=== PATIENT | male | born 1960 | race Caucasian/White ===

== ENCOUNTER 2021-03-02 14:23 | Inpatient (IN) | payer BC ==
[~2021-03-02] VITALS: Ht 182.9 cm; Wt 65.5 kg
[2021-03-02] MEDS ORDERED: HYDROcodone/APAP 5/325MG 1 TAB TABLET PO PRN (15:00)
[2021-03-02] MEDS ORDERED: SIMETHICONE 80 MG TAB.CHEW PO PRN (15:00)
[2021-03-02] MEDS ORDERED: BENZOCAINE/MENTHOL LOZENGE. PO PRN (15:00)
[2021-03-02 15:43] VITALS: BP 147/80
[2021-03-02 16:07] LABS: BASO % 0 % (0-3); EOS # 0.2 x10^3/uL (0.0-0.7); EOS % 1 % (0-3); HEMATOCRIT 30.5 % (39.0-53.0); HEMOGLOBIN 9.5 g/dL (13.0-17.5); LYMPH # 0.5 x10^3/uL (1.0-4.8); LYMPH % 5 % (24-48); MEAN CORPUSCULAR HEMOGLOBIN 27 pg (25-35); MEAN CORPUSCULAR HGB CONC 31 g/dL (31-37); MEAN CORPUSCULAR VOLUME 87 fL (79-100); MONO # 1.1 x10^3/uL (0.0-1.1); MONO % 10 % (0-9); NEUT % 83 % (31-73); PLATELET COUNT 142 x10^3/uL (140-400); RED BLOOD COUNT 3.53 x10^6/uL (4.30-5.70); RED CELL DISTRIBUTION WIDTH 20.3 % (11.5-14.5); WHITE BLOOD COUNT 10.8 x10^3/uL (4.0-11.0)
[2021-03-02 16:32] LABS: CALCIUM 7.9 mg/dL (8.5-10.1); CREATININE 3.7 mg/dL (0.7-1.3); GFR 16.9; POTASSIUM 3.4 mmol/L (3.5-5.1)
[2021-03-02 16:55] LABS: ANISOCYTOSIS MOD; HYPOCHROMIA MOD; PLT ESTIMATE ADEQUATE (ADEQUATE)
[2021-03-02 16:56] LABS: OVALOCYTES FEW
[2021-03-02] MEDS ORDERED: IV NORMAL SALINE 1000ML BAG 1,000 ML IV PRN ×2 (17:00)
[2021-03-02] MEDS ORDERED: DIALYSIS PATIENT. MC PRN ×2 (17:00)
[2021-03-02] MEDS ORDERED: ALBUMIN HUMAN 25% 200 ML IV PRN (17:00)
[2021-03-02 18:32] VITALS: BP 147/79
--- NOTE | 2021-03-02 19:05 | NUR ---
Assessment completed vss poc explained , pt denied pain but c/o a burning sensation in his feet will resume care and continue to monitor pt. Pt to dialysis per bed.
--- NOTE | 2021-03-02 22:30 | NUR ---
Pt returned to unit per bed from dialysis, report given per phone from Marybeth RN will monitor pt. Call light in reach.
[2021-03-02] MEDS: CEFEPIME HCL IV Push 1 GM VIAL. IVP SCH (22:57)
[2021-03-02] MEDS: ZINC SULFATE 220 MG CAPSULE. PO SCH (22:58)
[2021-03-02] MEDS: DOCUSATE SODIUM 100 MG CAPSULE. PO SCH (22:58)
[2021-03-02] MEDS: AMIODARONE HCL 200 MG TABLET. PO SCH (22:58)
[2021-03-02] MEDS: ATORVASTATIN CALCIUM 20 MG TABLET PO SCH (22:58)
[2021-03-02] MEDS: BENZONATATE 100 MG CAPSULE. PO SCH (22:58)
[2021-03-02 23:00] VITALS: BP 126/78
[2021-03-03 02:37] VITALS: BP 124/70
[2021-03-03 07:00] VITALS: BP 141/75
[2021-03-03] MEDS: DOCUSATE SODIUM 100 MG CAPSULE. PO SCH ×2 (08:14→20:47)
[2021-03-03] MEDS: DIGOXIN 125 MCG TABLET. PO SCH (08:14)
[2021-03-03] MEDS: BENZONATATE 100 MG CAPSULE. PO SCH ×3 (08:14→20:47)
[2021-03-03] MEDS: FLUTICASONE 50MCG/NASAL SPRAY 16GM BOTTLE. NS SCH (08:14)
[2021-03-03] MEDS: FOLIC/VIT B COMP W-C (RENAL) TABLET. PO SCH (08:14)
[2021-03-03] MEDS: AMIODARONE HCL 200 MG TABLET. PO SCH ×2 (08:15→20:47)
[2021-03-03] MEDS: TORSEMIDE 20 MG TABLET. PO SCH (08:16)
[2021-03-03] MEDS: ACETAMINOPHEN 325 MG TABLET. PO PRN (09:43)
--- NOTE | 2021-03-03 10:33 | NUR ---
SS following for discharge planning. SS reviewed pt chart and discussed with pt RN. Pt is from home with spouse and is currently on room air. Pt on IV Cefepime. Wound care, Nephrology, and ID consulted. Pt has outpatient hemodialysis Tuesday, Tuesday, and Tuesday at [facility], ; fax [phone]. SS will continue to follow for discharge planning.
[2021-03-03 11:00] VITALS: BP 124/69
--- NOTE | 2021-03-03 11:18 | CONS ---
DATE OF CONSULTATION: 03/03/2021 REFERRING PHYSICIAN: Gris Hicks MD REASON FOR CONSULTATION: Right lower extremity wounds. HISTORY OF PRESENT ILLNESS: A 60-year-old male who presented to ED of [facility] with complaints of generalized weakness and inability to take care of himself. The patient had prolonged hospitalization at [facility] where he was admitted with necrotizing fasciitis of the right lower extremity with acute hypoxic respiratory failure with complications of ANDREW requiring hemodialysis. The patient was discharged to [facility] where he was there for rehab for 2 months and was discharged home about a week ago. When he came to his home, which is an , his and son were unable to take care of him. The patient thought he is not very strong enough to be able to go back to his . He presented to the ER at [facility] with generalized weakness. White count was elevated. UA showed 40 wbc's. Chest x-ray showed diffuse infiltrates. The patient has right HDC catheter for dialysis. The patient was started on cefepime and was transferred here to [facility] for further evaluation and treatment. WBC is 10.8, hemoglobin of 8.5, platelets of 143. Creatinine of 3.7. Hepatitis B antibody negative. ID consultation has been requested for antibiotic management. PAST MEDICAL HISTORY: Hypertension; coronary artery disease, status post PCI with stent; atrial fibrillation; right lower extremity necrotizing fasciitis, status post split-thickness graft from the donor site upper thigh for right lower extremity; ANDREW, now requiring hemodialysis; right quadriceps tendon rupture in 2013. PAST SURGICAL HISTORY: Reviewed. ALLERGIES: MORPHINE ANALOGUES, PENICILLIN CAUSING HIVES, SUCROSE, DOES NOT RECALL TAKING AMOXICILLIN OR AUGMENTIN. CURRENT MEDICATIONS: Cefepime. Other medications reviewed in medication list. FAMILY HISTORY: As per HPI. SOCIAL HISTORY: , nonsmoker, no alcohol, software expert. REVIEW OF SYSTEMS: Negative except for above in HPI. PHYSICAL EXAMINATION: VITAL SIGNS: Temperature 97.7, pulse 74, respiratory rate 16, blood pressure 124/70, oxygen saturation 95% on room air. GENERAL: Alert, oriented x 3 male, lying in bed comfortably, in no acute distress. HEENT: Normocephalic, atraumatic. Anicteric. No thrush. Oral mucosa moist. NECK: Supple. LUNGS: Clear bilaterally. HEART: S1, S2. No murmurs. CHEST WALL: Right chest wall hemodialysis catheter in place, clean. ABDOMEN: Soft, nontender, nondistended, no rebound, no guarding. EXTREMITIES: Right lower extremity dressing intact, in place, dry, just changed. The patient requested not to take it down. Wound pictures reviewed in wound notes. Does not appear grossly infected NEUROLOGIC: Alert and oriented x 3, grossly nonfocal. PSYCHIATRIC: Calm and cooperative. LABORATORY DATA: WBC 10.8, hemoglobin 9.5, hematocrit 30.5, platelets 142. Sodium 140, potassium 3.4, chloride 100, bicarb 31, BUN 50, creatinine 3.7, glucose 102, calcium 7.9. Hepatitis B surface antibody negative. IMAGING: None here. IMPRESSION: 1. History of necrotizing fasciitis affecting the right lower extremity at [facility] 10/2020, treated with antibiotics, followed by split-thickness skin graft from upper thigh. 2. Generalized weakness. 3. Leukocytosis. 4. Acute kidney injury, on hemodialysis currently. 5. Hypertension. 6. Coronary artery disease. 7. Atrial fibrillation. 8. Pyuria at [facility]. 9. Pulmonary infiltrates at [facility]. 10. Poor living condition RECOMMENDATIONS: 1. Continue cefepime, renal dosing for now. 2. The patient will likely not need prolonged antibiotic treatment. 3. Wound care as per wound team. 4. PT and OT as tolerated. 5. Continue supportive care. Thank you for consulting Infectious Disease to participate in this patient's care. If you have any questions, do not hesitate to contact me. MATTHEW DR: Forest TID: [id number] [facility] HEALTHDon
--- NOTE | 2021-03-03 11:47 | PN ---
DATE: 03/03/2021 SUBJECTIVE: The patient is resting, slightly propped up in bed, in no apparent respiratory distress, awake, alert. On questioning him, he denied any complaint. The nursing staff did not voice any concerns that he had an uneventful night. Did complain of headache that has resolved. PHYSICAL EXAMINATION: GENERAL: When I examined him, he was pale. No jaundice, cyanosis or thyromegaly. No jugular venous distention. No limb edema. VITAL SIGNS: His heart rate was 74, blood pressure is 124/70, temperature 97.7, respiratory rate was 16 and oxygen saturation was 95% on room air. HEAD, EYES, EARS, NOSE, AND THROAT: Normocephalic, atraumatic. NECK: Supple. HEART: Showed normal first and second heart sounds, no gallop or murmur. CHEST: Clear to auscultation, no crepitation or rhonchi. ABDOMEN: Distended, soft, nontender. NEUROLOGIC: He was awake, alert, responding appropriately. All cranial nerves intact. He moves extremities without difficulty, although he is mostly bedbound. He has wounds in his right lower extremity covered with dressing, marked muscle wasting of his right lower extremity. He has a double lumen catheter tunneled to the right internal jugular vein as well as triple lumen central line. LABORATORY WORK: As of yesterday showed hemoglobin of 10, hematocrit 30 with normal white cell count and platelets. ASSESSMENT: 1. Acute kidney injury requiring hemodialysis scheduled Tuesday, Tuesday, Tuesday. 2. History of necrotizing fasciitis, treated with IV antibiotic and split-thickness skin graft. 3. The patient has multiple other medical problems including: A. Hypertension. B. Coronary artery disease status post PCI with stent deployment. C. Atrial fibrillation, for which he underwent ablation. 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 YONG/DIANNA DR: Chadd TID: [id number]
--- NOTE | 2021-03-03 11:49 | PDOC2 ---
CONSULT Date of Consult Date of Consult DATE: 03/03/21 TIME: 11:38 Reason for Consult Reason for Consult: RENAL FAILURE Referring Physician Referring Physician: TEQUILA Identification/Chief Complaint Chief Complaint SOB Source Source: Chart review, Patient History of Present Illness Reason for Visit: THIS IS A 60 YR OLD ADMITTED TO [facility] WITH WEAKNESS. HE HAS BEING TREATED FOR PNEUMONIA. HE IS THEN TRANSFERRED HERE TO [facility] DUE TO HIS RENAL FAILURE AND NEED FOR HD. DENIED ANY CKD HX. IN LATE NOVEMBER THIS YEAR HE CUT HIS RIGHT THIGH AREA WHILE MOVING FURNITURE. IT THEN BECAME INFECTED AND HE DEVELOPED NECROTIZING FASCIITIS. HE WAS TREATED WITH ANTIBIOTICS AND NEEDED A SKIN GRAFT TO HIS THIGH AREA. HE WENT INTO [facility] AND HAS BEEN ON HD SINCE. HE WAS AT [facility] FOR THIS AND THEN TRANSFERRED TO [facility] FOR FURTHER THERAPY. HE WAS DISCHARGED HOME RECENTLY AND HAS BEEN AT THE [facility] IN [place] FOR 2 TREATMENTS PRIOR TO BEING ADMITTED TO [facility]. HE DENIES ANY OTHER HX Past Medical History Cardiovascular: AFIB, CAD, HTN Renal/: Acute renal failure Past Surgical History Past Surgical History RIGHT QUADRICEPS TENDON RUPTURE AND REPAIR Family History Family History: Hypertension Social History No ALCOHOL: none Drugs: None Lives: with Family Current Medications Current Medications Current Medications Acetaminophen (Tylenol) 650 mg PRN Q4HRS PRN PO MILD PAIN / TEMP > 100.3'F Last administered on 03/03/21at 09:43; Start 03/02/21 at 15:00 Amiodarone HCl (Cordarone) 100 mg BID PO Last administered on 03/03/21at 08:15; Start 03/02/21 at 21:00 Atorvastatin Calcium (Lipitor) 20 mg QHS PO Last administered on 03/02/21at 22:58; Start 03/02/21 at 21:00 Throat Lozenges (Cepacol Sore Throat Lozenge) 1 duc PRN Q2HRS PRN PO SORE THROAT; Start 03/02/21 at 15:00 Benzonatate (Tessalon Perle) 200 mg FFC100 PO Last administered on 03/03/21at 08:14; Start 03/02/21 at 21:00 Cefepime HCl (Maxipime) 1 gm Q24H IVP Last administered on 03/02/21at 22:57; Start 03/02/21 at 21:00 Digoxin (Lanoxin) 125 mcg DAILY PO Last administered on 03/03/21at 08:14; Start 03/03/21 at 09:00 Docusate Sodium (Colace) 100 mg BID PO Last administered on 03/03/21at 08:14; Start 03/02/21 at 21:00 Fluticasone Propionate (Flonase) 2 spray DAILY NS Last administered on 03/03/21at 08:14; Start 03/03/21 at 09:00 Vitamin B Complex/ Vitamin C (Miriam-Mariely) 1 tab DAILY PO Last administered on 03/03/21at 08:14; Start 03/03/21 at 09:00 Acetaminophen/ Hydrocodone Bitart (Lortab 5/325) 1 tab PRN Q4HRS PRN PO PAIN Last administered on 03/02/21at 23:03; Start 03/02/21 at 15:00 Simethicone (Gas-X) 80 mg PRN Q6HRS PRN PO GAS / BLOATING; Start 03/02/21 at 15:00 Torsemide (Demadex) 40 mg DAILY PO Last administered on 03/03/21at 08:16; Start 03/03/21 at 09:00 Zinc Sulfate (Orazinc) 220 mg HS PO Last administered on 03/02/21at 22:58; Start 03/02/21 at 21:00 Sodium Chloride 1,000 ml @ 1,000 mls/hr Q1H PRN IV hypotension; Start 03/02/21 at 17:00; Stop 03/02/21 at 22:59; Status DC Albumin Human 200 ml @ 200 mls/hr 1X PRN PRN IV Hypotension; Start 03/02/21 at 17:00; Stop 03/02/21 at 22:59; Status DC Sodium Chloride 1,000 ml @ 400 mls/hr Q2H30M PRN IV PATENCY; Start 03/02/21 at 17:00; Stop 03/03/21 at 04:59; Status DC Info (PHARMACY MONITORING -- do not chart) 1 each PRN DAILY PRN MC SEE COMMENTS; Start 03/02/21 at 17:00; Status UNV Info (PHARMACY MONITORING -- do not chart) 1 each PRN DAILY PRN MC SEE COMMENTS; Start 03/02/21 at 17:00 Allergies Allergies: Coded Allergies: Opioids - Morphine Analogues (Verified Allergy, Intermediate, 03/03/21) Penicillins (Verified Allergy, Intermediate, 03/03/21) sucrose (Verified Allergy, Mild, Anxiety, 03/03/21) ROS General: YES: Fatigue, Appetite PSYCHOLOGICAL ROS: YES: Anxiety Eyes: Yes Decreased vision HEENT: YES: Heacaches Respiratory: YES: Cough, Shortness of breath Gastrointestinal: Yes Constipation Genitourinary: YES Other (OLIGURIA) Musculoskeletal: Yes Muscular Weakness Neurological: Yes Weakness Skin: Yes Dry Skin Physical Exam General: Alert, Oriented X3, Cooperative, No acute distress HEENT: Atraumatic, PERRLA Lungs: Clear to auscultation Heart: Regular rate Abdomen: Normal bowel sounds, Soft, No tenderness Extremities: No clubbing Skin: No breakdown Neuro: Normal speech Psych/Mental Status: Mental status NL MUSCULOSKELETAL: No swelling Vitals VITALS Vital Signs Date Time Temp Pulse Resp B/P (MAP) Pulse Ox O2 Delivery O2 Flow Rate FiO2 03/03/21 11:00 98.1 68 18 124/69 (87) 97 Room Air 98.1 Labs Labs Laboratory Tests Test 03/02/21 15:50 White Blood Count 10.8 x10^3/uL (4.0-11.0) Red Blood Count 3.53 x10^6/uL (4.30-5.70) Hemoglobin 9.5 g/dL (13.0-17.5) Hematocrit 30.5 % (39.0-53.0) Mean Corpuscular Volume 87 fL (79-100) Mean Corpuscular Hemoglobin 27 pg (25-35) Mean Corpuscular Hemoglobin Concent 31 g/dL (31-37) Red Cell Distribution Width 20.3 % (11.5-14.5) Platelet Count 142 x10^3/uL (140-400) Neutrophils (%) (Auto) 83 % (31-73) Lymphocytes (%) (Auto) 5 % (24-48) Monocytes (%) (Auto) 10 % (0-9) Eosinophils (%) (Auto) 1 % (0-3) Basophils (%) (Auto) 0 % (0-3) Neutrophils # (Auto) 9.0 x10^3/uL (1.8-7.7) Lymphocytes # (Auto) 0.5 x10^3/uL (1.0-4.8) Monocytes # (Auto) 1.1 x10^3/uL (0.0-1.1) Eosinophils # (Auto) 0.2 x10^3/uL (0.0-0.7) Basophils # (Auto) 0.0 x10^3/uL (0.0-0.2) Platelet Estimate Adequate (ADEQUATE) Hypochromasia Mod Basophilic Stippling Present Anisocytosis Mod Ovalocytes Few Sodium Level 140 mmol/L (136-145) Potassium Level 3.4 mmol/L (3.5-5.1) Chloride Level 100 mmol/L (98-107) Carbon Dioxide Level 31 mmol/L (21-32) Anion Gap 9 (6-14) Blood Urea Nitrogen 58 mg/dL (8-26) Creatinine 3.7 mg/dL (0.7-1.3) Estimated GFR (Cockcroft-Gault) 16.9 Glucose Level 102 mg/dL (70-99) Calcium Level 7.9 mg/dL (8.5-10.1) Hepatitis B Surface Antibody Nonreactive Laboratory Tests Test 03/02/21 15:50 White Blood Count 10.8 x10^3/uL (4.0-11.0) Red Blood Count 3.53 x10^6/uL (4.30-5.70) Hemoglobin 9.5 g/dL (13.0-17.5) Hematocrit 30.5 % (39.0-53.0) Mean Corpuscular Volume 87 fL (79-100) Mean Corpuscular Hemoglobin 27 pg (25-35) Mean Corpuscular Hemoglobin Concent 31 g/dL (31-37) Red Cell Distribution Width 20.3 % (11.5-14.5) Platelet Count 142 x10^3/uL (140-400) Neutrophils (%) (Auto) 83 % (31-73) Lymphocytes (%) (Auto) 5 % (24-48) Monocytes (%) (Auto) 10 % (0-9) Eosinophils (%) (Auto) 1 % (0-3) Basophils (%) (Auto) 0 % (0-3) Neutrophils # (Auto) 9.0 x10^3/uL (1.8-7.7) Lymphocytes # (Auto) 0.5 x10^3/uL (1.0-4.8) Monocytes # (Auto) 1.1 x10^3/uL (0.0-1.1) Eosinophils # (Auto) 0.2 x10^3/uL (0.0-0.7) Basophils # (Auto) 0.0 x10^3/uL (0.0-0.2) Platelet Estimate Adequate (ADEQUATE) Hypochromasia Mod Basophilic Stippling Present Anisocytosis Mod Ovalocytes Few Sodium Level 140 mmol/L (136-145) Potassium Level 3.4 mmol/L (3.5-5.1) Chloride Level 100 mmol/L (98-107) Carbon Dioxide Level 31 mmol/L (21-32) Anion Gap 9 (6-14) Blood Urea Nitrogen 58 mg/dL (8-26) Creatinine 3.7 mg/dL (0.7-1.3) Estimated GFR (Cockcroft-Gault) 16.9 Glucose Level 102 mg/dL (70-99) Calcium Level 7.9 mg/dL (8.5-10.1) Hepatitis B Surface Antibody Nonreactive Assessment/Plan Assessment/Plan IMP [id number] PROB HCAP HX HTN S/P RIGHT LE NECROTIZING FASCIITIS S/P SKIN GRAFT MILD HYPOKALEMIA ANEMIA PLAN START LEONARD HD MWF-RIGHT IJ TDC ANTIBIOTICS WILL CONT TO MONITOR FOR ANDREW RECOVERHY WILL FOLLOW JIMMY ROSA MD Mar 03, 2021 11:49
--- NOTE | 2021-03-03 11:51 | HP ---
DATE OF SERVICE: 03/03/2021 ADMIT DATE: 03/02/2021 HISTORY OF PRESENT ILLNESS: The patient is a 60-year-old male patient who was transferred yesterday from [facility], where he presented to the Emergency Room with a complaint of generalized weakness. The patient has necrotizing fasciitis of the right lower extremity and was initially at [facility] where he was treated with antibiotic. Split thickness skin graft from the donor site of the right upper thigh. During treatment, he apparently developed acute kidney injury that is requiring hemodialysis and from there, he was transferred to [facility] in [place] where he spent another 2 months there and was discharged about 48 hours before he arrived to the Emergency Room of [facility]. When he came home, he was unable to get into the house and his was unable to help him and the neighbor came and helped him to move into the house. Apparently, he stayed at home all a day before admission and rested. He is very concerned that he is not strong enough to be able to go home and his has the same concern. He is getting dialysis at the dialysis unit in [facility] every Tuesday, Tuesday and Tuesday. He apparently spoke with a rehab facility, they denied any, they advised him to come to the Emergency Room for medical clearance. He denied any other complaint. He was evaluated in the Emergency Room at [facility] where he has lab work done, which showed that his white cell count was high at 14,800. His chemistry showed that he has chronic kidney disease with deranged liver enzymes and urinalysis showed that the urine has more than 40 wbc's and few bacteria. His chest x-ray showed diffuse interstitial infiltrates, small pleural effusion and cardiomegaly. He has a right internal jugular catheter and the patient was admitted to [facility] as there are no beds available at [facility]. He was admitted with diagnosis of pneumonia and generalized weakness, acute kidney injury requiring hemodialysis, necrotizing fasciitis of the right lower extremity. He was continued on his medication and was started on IV antibiotic in the form of cefepime, eventually bed becomes available and was transferred to [facility] to continue with hemodialysis, wound care, antibiotic therapy and to hopefully consult our pillowcase cutter to place him in a retirement facility. PAST MEDICAL HISTORY: Significant for hypertension, coronary artery disease, status post PCI and stent deployment. He is known to have atrial fibrillation for which he underwent ablation before and apparently he is scheduled for another ablation on 03/25/2021. He had an acute kidney injury that has not really resolved and he continued to be hemodialysis dependent. He has necrotizing fasciitis of the right lower extremity, has had also what seemed to be right quadriceps tendon. Flaps rupture in 2013. PAST SURGICAL HISTORY: Significant for percutaneous coronary angioplasty and stent deployment to right quadriceps tendon rupture, status post repair. Split thickness skin graft from his donor site of the right thigh to his right leg. ALLERGIES: ALLERGIC TO PENICILLIN. MEDICATIONS: He was transferred to continue on furosemide 40 mg daily, vitamin B, Miriam-Mariely 1 tablet once a day, Flonase 2 sprays to each nostril once a day, digoxin 125 mcg once a day, zinc sulfate 220 mg daily, Colace 100 mg twice a day, cefepime 1 gram IV q. 24 hours, benzonatate 200 mg 3 times a day, atorvastatin 20 mg at bedtime, amiodarone 100 mg p.o. b.i.d., simethicone 80 mg every 6 hours, hydrocodone/APAP 5/325 one tablet every 4 hours, Symbicort lozenges 1 lozenge every 2 hours as needed and acetaminophen 650 mg every 4 hours. FAMILY HISTORY: He has 2 older brothers, both of them have heart disease. His father at age of 64 because of congestive heart failure. Mother at age of 98. SOCIAL HISTORY: He is , has 2 sons. He never smoked, does not drink alcohol or use any marijuana. He is a software expert. REVIEW OF SYSTEMS: He apparently has unintentional weight loss from 215-175. He is now unable to walk without the walker and his appetite continued to be extremely poor. PHYSICAL EXAMINATION: GENERAL: On arrival, when I saw him in [facility], he looked well and was clearly in no apparent respiratory distress. He was pale, cachectic, but no jaundice, cyanosis or thyromegaly. No jugular venous distention. No limb edema. VITAL SIGNS: His heart rate was 87, blood pressure 147/80, temperature was 97.7, respiratory rate was 16 and oxygen saturation was 99%. HEAD, EYES, EARS, NOSE AND THROAT: Normocephalic, atraumatic. NECK: Supple. HEART: Showed normal first and second heart sounds. No gallop, rub or murmur. CHEST: Clear to auscultation, no crepitation or rhonchi. ABDOMEN: Distended, soft, nontender. NEUROLOGIC: He was awake, alert, responding appropriately. Cranial nerves intact. He moves extremities without difficulty, although he is mostly bedbound disease and required assistance when he walks with a walker. LABORATORY DATA: Showed a white cell count of 10,800, hemoglobin 10, hematocrit 30, MCV 87 and platelet count of 142,000 with normal manual differential. His chemistry showed a serum sodium 140, potassium 3.4, chloride 100, bicarbonate 31, anion gap of 9, BUN 58, creatinine 3.7. Estimated GFR was 16.9, glucose was 102, calcium was 7.9. ASSESSMENT AND PLAN: The plan is obviously to consult the [facility] certified concierge as he is scheduled for hemodialysis Tuesday, Tuesday, Tuesday and continue with IV antibiotic. Continue with wound care. I will consult physical and occupational therapy and pillowcase cutter for placement in a retirement facility. ANGELITO DR: Chadd TID: [id number]
[2021-03-03] MEDS ORDERED: traMADol 50 MG TABLET PO PRN (12:15)
[2021-03-03 14:55] VITALS: BP 135/68
--- NOTE | 2021-03-03 15:52 | NUR ---
Wound/Ostomy Care Wound Type/Assessment: Patient seen per wound care consult. See wound assessment. Patient has a right lower leg nec fasc with skin graft. Patient had originally injured his leg at home and underwent skin graft, inpatient and rehab stay, etc. Wound cleansed, assessed, and measured. the skin graft is incorporated nicely and patient states wound is healing nicely. There is minimal amount of slough/eschar that would benefit from medi-honey gel to those areas. Treatment Recommendations/Plan: Recommendations for medi-honey gel to eschar/slough areas then cover with xeroform gauze, then ABDs pads and kerlix. Change on Tuesday and Tuesday. Dressing applied and patient tolerated well. No other wound noted. Education provided: Patient educated on dressing changes and PU prevention. Offloading surface/device: N/A Recommended Referrals/Tests: Patient should follow up with wound care whether its here or he continues care at with surgeon. Discharge Recommendations for dressings: Dressing change instructions left in room. Patient left in chair and legs elevated. Call light in reach. Wound care will follow up on 03/11/21.
[2021-03-03 19:00] VITALS: BP 128/67
--- NOTE | 2021-03-03 19:25 | NUR ---
Pt sitting up in chair assessment completed vss poc explained pt denied pain call light in reach will resume care and continue to monitor pt.
[2021-03-03] MEDS: ATORVASTATIN CALCIUM 20 MG TABLET PO SCH (20:47)
[2021-03-03] MEDS: ZINC SULFATE 220 MG CAPSULE. PO SCH (20:47)
[2021-03-03] MEDS: CEFEPIME HCL IV Push 1 GM VIAL. IVP SCH (20:47)
[2021-03-03] MEDS: LACTOBACILLUS RHAMNOSUS GG 1 CAPSULE. PO SCH (20:53)
[2021-03-03 22:44] VITALS: BP 135/67
[2021-03-04 02:50] VITALS: BP 129/73
[2021-03-04] MEDS: ACETAMINOPHEN 325 MG TABLET. PO PRN ×2 (03:39→09:13)
[2021-03-04] MEDS ORDERED: IV NORMAL SALINE 1000ML BAG 1,000 ML IV PRN ×2 (07:30)
[2021-03-04] MEDS ORDERED: DIALYSIS PATIENT. MC PRN (07:30)
[2021-03-04] MEDS: FLUTICASONE 50MCG/NASAL SPRAY 16GM BOTTLE. NS SCH (09:00)
--- NOTE | 2021-03-04 09:54 | PDOC ---
Infectious Disease Note Subjective: Subjective Patient seen in dialysis unit Denies any complaints Wound team has evaluated wound per discussion with RN yesterday Vital Signs: Vital Signs Vital Signs Date Time Temp Pulse Resp B/P (MAP) Pulse Ox O2 Delivery O2 Flow Rate FiO2 03/04/21 02:50 97.9 92 18 129/73 (91) 96 Room Air 97.9 Physical Exam: PHYSICAL EXAM GENERAL: Alert, oriented x 3 male, lying in bed comfortably, in no acute distress. HEENT: Normocephalic, atraumatic. Anicteric. No thrush. Oral mucosa moist. NECK: Supple. LUNGS: Clear bilaterally. HEART: S1, S2. No murmurs. CHEST WALL: Right chest wall hemodialysis catheter in place, clean. ABDOMEN: Soft, nontender, nondistended, no rebound, no guarding. EXTREMITIES: Right lower extremity dressing intact, in place, dry, just changed. The patient requested not to take it down. Wound pictures reviewed in wound notes. NEUROLOGIC: Alert and oriented x 3, grossly nonfocal. PSYCHIATRIC: Calm and cooperative. Medications: Inpatient Meds: Medications reviewed. Objective: Assessment: 1. Chronic right lower extremity wound with history of necrotizing fasciitis affecting the right lower extremity at [facility] 10/2020, treated with antibiotics, followed by split-thickness skin graft from upper thigh. Patient was not on any antibiotics for a couple of months prior to this admission 2. Generalized weakness. 3. Leukocytosis. 4. Acute kidney injury, on hemodialysis currently. 5. Hypertension. 6. Coronary artery disease. 7. Atrial fibrillation. 8. Pyuria at [facility]. 9. Pulmonary infiltrates at [facility]. Plan: Plan of Care 1. Continue cefepime, renal dosing. 2. The patient will likely not need prolonged antibiotic treatment. 3. Wound care as per wound team. 4. PT and OT as tolerated. 5. Continue supportive care. DOUG GONZALEZ MD Mar 04, 2021 09:54
--- NOTE | 2021-03-04 10:53 | NUR ---
SS following up with discharge planning. SS reviewed pt chart and discussed with pt RN. Pt is currently on room air. COVID19 negative at [facility]. Pt on IV Cefepime. Wound care following. Pt has outpatient dialysis at [facility], Tuesday, Tuesday, and Tuesday,[phone]; fax [phone]. PT/OT recommended correction unit. SS contacted pt's spouse and discussed discharge planning and correction unit. Pt's spouse reported that she had spoke with [facility] [place] and requested referral be phoned and faxed to [facility], ; fax [phone]. SS phoned and faxed as requested. SS will continue to follow for discharge planning. Addendum: 03/04/21 at 1647 by TANNER PITTMAN SS Pt accepted at [facility] pending insurance authorization.
[2021-03-04 11:00] VITALS: BP 119/78
--- NOTE | 2021-03-04 11:14 | PN ---
DATE: 03/04/2021 SUBJECTIVE: The patient is resting, slightly propped up, having his scheduled hemodialysis. On questioning him, he denied any complaint except extreme weakness and inability to walk. PHYSICAL EXAMINATION: GENERAL: When I examined him, he looked pale. No jaundice, cyanosis, no lymphadenopathy, no thyromegaly, no jugular venous distention. No lower limb edema. VITAL SIGNS: His heart rate was 92, blood pressure is 129/73, temperature was 97.9, respiratory rate was 18 and oxygen saturation was 96% on room air. HEAD, EYES, EARS, NOSE, AND THROAT: Normocephalic, atraumatic. NECK: Supple. HEART: Showed normal first and second heart sounds. No gallop, rub or murmur. CHEST: Clear to auscultation, no crepitation or rhonchi. ABDOMEN: Distended, soft, nontender. NEUROLOGIC: He was grossly intact. His intake was 420, output was 900. LABORATORY DATA: He has actually no lab work done this morning. ASSESSMENT: 1. Acute kidney injury requiring hemodialysis scheduled Tuesday, Tuesday, Tuesday. 2. History of necrotizing, fasciitis, treated with IV antibiotic and split-thickness skin graft. 3. The patient has multiple other medical problems including: A. Hypertension. B. Coronary artery disease status post PCI with stent deployment. C. Atrial fibrillation for which he underwent ablation. PLAN: To continue with antibiotic. Continue with hemodialysis on Tuesday, Tuesday and Tuesday. Continue with PT, OT. Continue with wound care. Our social services manager is working to place him in a correction facility. ANGELITO DR: Chadd TID: [phone]
[2021-03-04] MEDS: TORSEMIDE 20 MG TABLET. PO SCH (11:32)
[2021-03-04] MEDS: AMIODARONE HCL 200 MG TABLET. PO SCH ×2 (11:33→22:30)
[2021-03-04] MEDS: FOLIC/VIT B COMP W-C (RENAL) TABLET. PO SCH (11:33)
[2021-03-04] MEDS: DOCUSATE SODIUM 100 MG CAPSULE. PO SCH ×2 (11:33→22:32)
[2021-03-04] MEDS: LACTOBACILLUS RHAMNOSUS GG 1 CAPSULE. PO SCH ×2 (11:33→22:28)
[2021-03-04] MEDS: DIGOXIN 125 MCG TABLET. PO SCH (11:33)
[2021-03-04] MEDS: BENZONATATE 100 MG CAPSULE. PO SCH ×3 (11:34→22:27)
--- NOTE | 2021-03-04 11:50 | PDOC ---
Renal-Progress Notes Subjective Notes Notes NO NEW COMPLAINTS History of Present Illness Hx of present illness STABLE Vitals Vitals Vital Signs Date Time Temp Pulse Resp B/P (MAP) Pulse Ox O2 Delivery O2 Flow Rate FiO2 03/04/21 11:33 83 119/78 03/04/21 11:00 97.5 18 97 Room Air 97.5 Weight Weight [ ] I.O. Intake and Output Intake and Output 03/04/21 07:00 Intake Total 960 ml Output Total 700 ml Balance 260 ml Intake Oral 960 ml Output Urine Total 700 ml Review of Systems Constitutional: yes: weakness, alert, oriented Ears/Nose/Throat: Yes: no symptom reported Eyes: Yes: no symptom reported Pulmonary: Yes no symptom reported Cardiovascular: Yes no symptom reported Gastrointestional: Yes: no symptom reported Genitourinary: Yes: no symptom reported Musculoskeletal: Yes: no symptom reported Psychiatric/Neurological: Yes: no symptom reported Endocrine: Yes: no symptom reported Physical Exam General Appearance: no apparent distress Skin: warm Respiratory: bilateral CTA Heart: S1S2 Abdomen: soft, bowel sounds present Genitourinary: bladder flat Extremities: pulses present Neurology: alert, oriented Assessment Assessment IMP [id number] PROB HCAP HX HTN S/P RIGHT LE NECROTIZING FASCIITIS S/P SKIN GRAFT MILD HYPOKALEMIA - CORRECTED PYURIA ANEMIA PLAN CONT EPO HD MWF-RIGHT IJ TDC HD TODAY UF TO TW ANTIBIOTICS WILL CONT TO MONITOR FOR ANDREW RECOVERHY WILL FOLLOW JIMMY ROSA MD Mar 04, 2021 11:50
--- NOTE | 2021-03-04 13:04 | PDOC2 ---
DANIELE HARTMANN [employer] 03/04/21 1304: CARDIAC CONSULT DATE OF CONSULT Date of Consult DATE: 03/04/21 TIME: 12:37 REASON FOR CONSULT Reason for Consult: Chronic AFIB REFERRING PHYSICIAN Referring Physician: Kurt SOURCE Source: Chart review, Patient HISTORY OF PRESENT ILLNESS HISTORY OF PRESENT ILLNESS This is a 60 yo male admitted initially at [facility] for complains of weakness and self care deficit. He was recently treated at [facility] for RLE necrotizing fascitis and ended up with severer ANDREW and does received HD now. He was also in a post acute care recently and recently DC to home. It appears that helives in the RV and has not been able to take care of him and has been very week. He then got transferred here for dialysis and antibiotic therapy. He is known for severe CM and chronic aFIB treated with ablation before His previous EF was 10-15% Denies any chest pain or SOA. NO n/v/d. He is fully vaccinated for covid-19. PAST MEDICAL HISTORY Cardiovascular: AFIB, CAD, HTN, Hyperlipidemia Renal/: Chronic renal failure Dermatology: Other (RLE necrotizing fascitis) PAST SURGICAL HISTORY Past Surgical History: Other (PCI, cardiac ablation, right quadricep tendon repair) FAMILY HISTORY Family History noncontributory to CV SOCIAL HISTORY Smoke: No ALCOHOL: none Drugs: None Lives: with Family CURRENT MEDICATIONS CURRENT MEDICATIONS Current Medications Medications (Trade) Dose Ordered Sig/Yas Route PRN Reason Start Time Stop Time Status Last Admin Dose Admin Lactobacillus Rhamnosus (Culturelle) 1 cap BID PO 03/03/21 21:00 03/04/21 11:33 ALLERGIES ALLERGIES: Coded Allergies: Opioids - Morphine Analogues (Verified Allergy, Intermediate, 03/03/21) Penicillins (Verified Allergy, Intermediate, 03/03/21) sucrose (Verified Allergy, Mild, Anxiety, 03/03/21) ROS Review of System 14 point ROS evlauated with pertinent positives noted per HPI PHYSICAL EXAM General: Alert, Oriented X3, Cooperative, No acute distress HEENT: Atraumatic, Mucous membr. moist/pink Lungs: Other (diminished bases) Heart: Other (AFIB) Abdomen: Soft, No tenderness Extremities: No cyanosis, No edema Skin: No breakdown, No significant lesion Neuro: Normal speech, Sensation intact Psych/Mental Status: Mental status NL, Mood NL MUSCULOSKELETAL: Osteoarthritic changes both hands VITALS/I&O VITALS/I&O: Vital Signs Date Time Temp Pulse Resp B/P (MAP) Pulse Ox O2 Delivery O2 Flow Rate FiO2 03/04/21 11:33 83 119/78 03/04/21 11:00 97.5 18 97 Room Air 97.5 I & O 03/03/21 03/03/21 03/04/21 15:00 23:00 07:00 Intake Total 360 ml 300 ml 300 ml Output Total 300 ml 400 ml Balance 360 ml 0 ml -100 ml ECHOCARDIOGRAM ECHOCARDIOGRAM 12/10/2020[facility] Severely dilated left ventricle with severely reduced systolic function. LVEF is 15% Unable to assess diastolic function due to underlying atrial fibrillation. Heart rate is about 110 bpm as well Right ventricle is mildly dilated with mildly reduced systolic function Mildly dilated left atrium and moderately dilated right atrium Markedly elevated central venous pressure Moderate mitral valve regurgitation likely related to annular dilatation. No stenosis Moderate to severe tricuspid valve regurgitation without an obvious structural abnormality Normal-appearing aortic valve with mild central jet of regurgitation Small pericardial effusion HEART CATH HEART CATH 06/06/14: Cardiac cath: EF 20-25%, trace MR, subtotal proximal LAD, s/p NELLY x 2 ( 2.5 x 38 mm, 2.5 x 15 mm), 40-50% mid/distal stenosis, Dominant Lcx with subto jayjay PLV, successful NELLY. Small RCA free of dz, ~ Continue ASA lifelong & Effient >/= 1 year w/o interruption. ASSESSMENT/PLAN ASSESSMENT/PLAN 1. Weakness and self care deficit with possible HCAP 2. ESRD 3. Severe cardiomyopathy: Recent EF at 15% 4. CAD; past PCI clinically stable 5. Persistent AFIB: rate controlled. past ablation 6. Chronic systolic CHF: compensated Recommendations 1. Continue rate control with toprol and digoxin. Could not ascertain use of amiodarone as pt is persistently in AFIB and has failed ablation and CVN in the past. Will discuss with primary palletizer 2. Eliquis for stroke prevention. Continue ASA. Secondary prevention measures 3. Fluid off loading per HD 4. Will need AICD as outpt and will defer this to [facility] cardiology, ADAMARIS Marquez MD 03/04/21 6676: CARDIAC CONSULT ASSESSMENT/PLAN ASSESSMENT/PLAN The patient was seen and interviewed as well as examined at the bedside. The chart was reviewed. The case was discussed. Agree with the plan of care. DANIELE HARTMANN APRN Mar 04, 2021 13:04 ADAMARIS VALLEJO MD Mar 04, 2021 15:16
[2021-03-04] MEDS ORDERED: METOPROLOL SUCC 24HR ER 25 MG TAB.ER.24H. PO ONE (13:15)
[2021-03-04 15:00] VITALS: BP 115/70
[2021-03-04 19:00] VITALS: BP 124/69
[2021-03-04] MEDS: CEFEPIME HCL IV Push 1 GM VIAL. IVP SCH (22:26)
[2021-03-04] MEDS: ZINC SULFATE 220 MG CAPSULE. PO SCH (22:28)
[2021-03-04] MEDS: ATORVASTATIN CALCIUM 20 MG TABLET PO SCH (22:28)
[2021-03-04] MEDS: EPOETIN ALFA-EPBX for ESRD 20,000 UNIT/ML VIAL. SQ SCH (22:40)
[2021-03-04 23:00] VITALS: BP 134/75
[2021-03-05 03:00] VITALS: BP 122/64
[2021-03-05 07:00] VITALS: BP 112/76
[2021-03-05 08:13] LABS: HEMATOCRIT 28.9 % (39.0-53.0); HEMOGLOBIN 9.1 g/dL (13.0-17.5); RED BLOOD COUNT 3.38 x10^6/uL (4.30-5.70); RED CELL DISTRIBUTION WIDTH 19.9 % (11.5-14.5); WHITE BLOOD COUNT 8.8 x10^3/uL (4.0-11.0)
[2021-03-05] MEDS: FOLIC/VIT B COMP W-C (RENAL) TABLET. PO SCH (08:21)
[2021-03-05] MEDS: LACTOBACILLUS RHAMNOSUS GG 1 CAPSULE. PO SCH ×2 (08:21→20:25)
[2021-03-05] MEDS: AMIODARONE HCL 200 MG TABLET. PO SCH ×2 (08:21→20:25)
[2021-03-05] MEDS: DOCUSATE SODIUM 100 MG CAPSULE. PO SCH ×2 (08:21→20:25)
[2021-03-05] MEDS: TORSEMIDE 20 MG TABLET. PO SCH (08:22)
[2021-03-05] MEDS: BENZONATATE 100 MG CAPSULE. PO SCH (08:22)
[2021-03-05] MEDS: METOPROLOL SUCC 24HR ER 25 MG TAB.ER.24H. PO SCH (08:22)
[2021-03-05] MEDS: DIGOXIN 125 MCG TABLET. PO SCH (08:22)
[2021-03-05] MEDS: FLUTICASONE 50MCG/NASAL SPRAY 16GM BOTTLE. NS SCH (08:23)
[2021-03-05 08:28] LABS: ALBUMIN 2.3 g/dL (3.4-5.0); ALBUMIN/GLOBULIN RATIO 0.6 (1.0-1.7); CALCIUM 8.2 mg/dL (8.5-10.1); CREATININE 2.4 mg/dL (0.7-1.3); GFR 27.8; POTASSIUM 3.7 mmol/L (3.5-5.1); TOTAL BILIRUBIN 1.4 mg/dL (0.2-1.0); TOTAL PROTEIN 6.4 g/dL (6.4-8.2)
--- NOTE | 2021-03-05 09:25 | PDOC ---
Infectious Disease Note Subjective: Subjective Patient any complaints Awaiting wound dressing tomorrow Still has cough and congestion No symptoms Vital Signs: Vital Signs Vital Signs Date Time Temp Pulse Resp B/P (MAP) Pulse Ox O2 Delivery O2 Flow Rate FiO2 03/05/21 08:22 75 122/64 03/05/21 07:00 97.9 16 97 Room Air 97.9 Physical Exam: PHYSICAL EXAM GENERAL: Alert, oriented x 3 male, lying in bed comfortably, in no acute distress. HEENT: Normocephalic, atraumatic. Anicteric. No thrush. Oral mucosa moist. NECK: Supple. LUNGS: Clear bilaterally. HEART: S1, S2. No murmurs. CHEST WALL: Right chest wall hemodialysis catheter in place, clean. ABDOMEN: Soft, nontender, nondistended, no rebound, no guarding. EXTREMITIES: Right lower extremity dressing intact, in place, dry, just changed. The patient requested not to take it down. Wound pictures reviewed in wound notes. NEUROLOGIC: Alert and oriented x 3, grossly nonfocal. PSYCHIATRIC: Calm and cooperative. Medications: Inpatient Meds: Medications reviewed. Labs: Lab Laboratory Tests Test 03/05/21 07:50 White Blood Count 8.8 x10^3/uL (4.0-11.0) Red Blood Count 3.38 x10^6/uL (4.30-5.70) Hemoglobin 9.1 g/dL (13.0-17.5) Hematocrit 28.9 % (39.0-53.0) Mean Corpuscular Volume 86 fL (79-100) Mean Corpuscular Hemoglobin 27 pg (25-35) Mean Corpuscular Hemoglobin Concent 31 g/dL (31-37) Red Cell Distribution Width 19.9 % (11.5-14.5) Platelet Count 151 x10^3/uL (140-400) Sodium Level 140 mmol/L (136-145) Potassium Level 3.7 mmol/L (3.5-5.1) Chloride Level 100 mmol/L (98-107) Carbon Dioxide Level 32 mmol/L (21-32) Anion Gap 8 (6-14) Blood Urea Nitrogen 31 mg/dL (8-26) Creatinine 2.4 mg/dL (0.7-1.3) Estimated GFR (Cockcroft-Gault) 27.8 BUN/Creatinine Ratio 13 (6-20) Glucose Level 86 mg/dL (70-99) Calcium Level 8.2 mg/dL (8.5-10.1) Total Bilirubin 1.4 mg/dL (0.2-1.0) Aspartate Amino Transf (AST/SGOT) 59 U/L (15-37) Alanine Aminotransferase (ALT/SGPT) 69 U/L (16-63) Alkaline Phosphatase 154 U/L (46-116) Total Protein 6.4 g/dL (6.4-8.2) Albumin 2.3 g/dL (3.4-5.0) Albumin/Globulin Ratio 0.6 (1.0-1.7) Objective: Assessment: 1. Chronic right lower extremity wound with history of necrotizing fasciitis affecting the right lower extremity at [facility] 10/2020, treated with antibiotics, followed by split-thickness skin graft from upper thigh. Patient was not on any antibiotics for a couple of months prior to this admission 2. Generalized weakness. Improving 3. Leukocytosis. 4. Acute kidney injury, on hemodialysis currently. 5. Hypertension. 6. Coronary artery disease. 7. Atrial fibrillation. 8. Pyuria at [facility]. Urine culture less than 10K [place] albicans 9. Pulmonary infiltrates at [facility]. Plan: Plan of Care 1. DC cefepime 2. Fluconazole 200 mg once 3. Wound care as per wound team. DOUG GONZALEZ MD Mar 05, 2021 09:25
--- NOTE | 2021-03-05 09:25 | PDOC ---
Renal-Progress Notes Subjective Notes Notes NO NEW COMPLAINTS, SLEEPY History of Present Illness Hx of present illness STABLE, SOMNOLENT Vitals Vitals Vital Signs Date Time Temp Pulse Resp B/P (MAP) Pulse Ox O2 Delivery O2 Flow Rate FiO2 03/05/21 08:22 75 122/64 03/05/21 07:00 97.9 16 97 Room Air 97.9 Weight Weight [ ] I.O. Intake and Output Intake and Output 03/05/21 07:00 Intake Total 890 ml Output Total 750 ml Balance 140 ml Intake Oral 890 ml Output Urine Total 750 ml # Bowel Movements 1 Labs Labs Laboratory Tests Test 03/05/21 07:50 White Blood Count 8.8 x10^3/uL (4.0-11.0) Red Blood Count 3.38 x10^6/uL (4.30-5.70) Hemoglobin 9.1 g/dL (13.0-17.5) Hematocrit 28.9 % (39.0-53.0) Mean Corpuscular Volume 86 fL (79-100) Mean Corpuscular Hemoglobin 27 pg (25-35) Mean Corpuscular Hemoglobin Concent 31 g/dL (31-37) Red Cell Distribution Width 19.9 % (11.5-14.5) Platelet Count 151 x10^3/uL (140-400) Sodium Level 140 mmol/L (136-145) Potassium Level 3.7 mmol/L (3.5-5.1) Chloride Level 100 mmol/L (98-107) Carbon Dioxide Level 32 mmol/L (21-32) Anion Gap 8 (6-14) Blood Urea Nitrogen 31 mg/dL (8-26) Creatinine 2.4 mg/dL (0.7-1.3) Estimated GFR (Cockcroft-Gault) 27.8 BUN/Creatinine Ratio 13 (6-20) Glucose Level 86 mg/dL (70-99) Calcium Level 8.2 mg/dL (8.5-10.1) Total Bilirubin 1.4 mg/dL (0.2-1.0) Aspartate Amino Transf (AST/SGOT) 59 U/L (15-37) Alanine Aminotransferase (ALT/SGPT) 69 U/L (16-63) Alkaline Phosphatase 154 U/L (46-116) Total Protein 6.4 g/dL (6.4-8.2) Albumin 2.3 g/dL (3.4-5.0) Albumin/Globulin Ratio 0.6 (1.0-1.7) Review of Systems Constitutional: yes: alert, other (SLEEPY) Ears/Nose/Throat: Yes: no symptom reported Eyes: Yes: no symptom reported Pulmonary: Yes no symptom reported Cardiovascular: Yes no symptom reported Gastrointestional: Yes: no symptom reported Genitourinary: Yes: no symptom reported Musculoskeletal: Yes: no symptom reported Psychiatric/Neurological: Yes: no symptom reported Endocrine: Yes: no symptom reported Physical Exam General Appearance: no apparent distress Skin: warm Respiratory: bilateral CTA Heart: S1S2 Abdomen: soft, bowel sounds present Genitourinary: bladder flat Extremities: pulses present Neurology: alert Assessment Assessment IMP [id number] SEVERE CM WITH EF OF 15% PROB HCAP HX HTN S/P RIGHT LE NECROTIZING FASCIITIS S/P SKIN GRAFT MILD HYPOKALEMIA - CORRECTED PYURIA ANEMIA PLAN CONT EPO HD TOMORROW ANTIBIOTICS WILL CONT TO MONITOR FOR ANDREW RECOVERY WILL FOLLOW JIMMY ROSA MD Mar 05, 2021 09:25
--- NOTE | 2021-03-05 10:39 | PN ---
DATE: 03/05/2021 SUBJECTIVE: The patient is resting slightly propped up in bed, in no apparent distress. He is awake, alert. On questioning him, he denies any complaint. Nursing staff did not voice any concern. PHYSICAL EXAMINATION: GENERAL: On examining him, he looked well, pale, not jaundiced, cyanosed, no lymphadenopathy, no thyromegaly, no jugular venous distention. No limb edema. VITAL SIGNS: His heart rate was 75, blood pressure is 122/64, temperature was 97.9, respiratory rate was 16 and oxygen saturation was 97% on room air. HEAD, EYES, EARS, NOSE, AND THROAT: Normocephalic and atraumatic. NECK: Supple. HEART: Normal first and second heart sounds, no gallop or murmur. CHEST: Clear to auscultation, no crepitation or rhonchi. ABDOMEN: Slightly distended, soft, nontender. NEUROLOGIC: He is awake, alert, responding appropriately. All his cranial nerves are intact. He moves upper extremities without difficulty. EXTREMITIES: He has wounds on the outer aspect of his right leg and from the donor site, the anterior aspect of the right thigh. His intake was 960, output was 700. LABORATORY DATA: As of this morning, his white cell count was 8800, hemoglobin 9, hematocrit 27, MCV 86 and platelet count of 151,000. Serum sodium was 140, potassium 3.7, chloride 100, bicarbonate 32, anion gap of 8, BUN 31, creatinine was 2.4. Estimated GFR was 28 mL per minute. His glucose was 86, calcium was 8.2. Total bilirubin, AST, ALT, alkaline phosphatase are elevated. Total protein 6.4, albumin was 2.3. ASSESSMENT: 1. Acute kidney injury, requiring hemodialysis scheduled Tuesday, Tuesday, Tuesday. 2. History of necrotizing fasciitis, treated with IV antibiotic and right split thickness skin graft. 3. The patient has multiple other medical problems including: A. Hypertension. B. Coronary artery disease, status post percutaneous coronary intervention and stent deployment. C. Atrial fibrillation for which he underwent ablation. PLAN: Obviously to continue with amiodarone and digoxin to control the heart rate. Continue with pain management. The patient is not on any anticoagulation. JOHNATHAN DR: Chadd TID: [id number]
[2021-03-05 11:00] VITALS: BP 121/67
--- NOTE | 2021-03-05 12:08 | PDOC ---
CARDIOLOGY PROGRESS NOTE SUBJECTIVE: Currently denies any chest pain or dyspnea. He is resting comfortably. His main reason for admission essentially appears to be failure to thrive at home. He also has significant cardiovascular comorbidities as noted below. He feels that he was discharged from the long-term acute care facility too quickly. OBJECTIVE: Vital Signs/I&O: Vital Signs Date Time Temp Pulse Resp B/P (MAP) Pulse Ox O2 Delivery O2 Flow Rate FiO2 03/05/21 11:00 98.1 67 16 121/67 (85) 98 Room Air 98.1 I & O 03/04/21 03/04/21 03/05/21 14:59 22:59 06:59 Intake Total 360 ml 180 ml 350 ml Output Total 400 ml 200 ml 150 ml Balance -40 ml -20 ml 200 ml Objective: GEN.: No apparent distress. Alert and oriented. HEENT: Head is normocephalic, atraumatic NECK: Supple. LUNGS: Clear to auscultation. HEART: Irregularly irregular, S1, S2 present. Peripheral pulses intact ABDOMEN: Soft, nontender. Positive bowel sounds. EXTREMITIES: Right lower extremity in a dressing. Diminished pedal pulses. NEUROLOGIC: Normal speech, normal tone PSYCHIATRIC: Normal affect, normal mood. SKIN: No ulcerations CURRENT MEDICATIONS: Metoprolol, amiodarone, digoxin and atorvastatin DIAGNOSTIC TESTING: Labs, telemetry reviewed Labs: Laboratory Tests 03/05/21 07:50 Laboratory Tests Test 03/05/21 07:50 White Blood Count 8.8 x10^3/uL (4.0-11.0) Red Blood Count 3.38 x10^6/uL (4.30-5.70) L Hemoglobin 9.1 g/dL (13.0-17.5) L Hematocrit 28.9 % (39.0-53.0) L Mean Corpuscular Volume 86 fL (79-100) Mean Corpuscular Hemoglobin 27 pg (25-35) Mean Corpuscular Hemoglobin Concent 31 g/dL (31-37) Red Cell Distribution Width 19.9 % (11.5-14.5) H Platelet Count 151 x10^3/uL (140-400) Sodium Level 140 mmol/L (136-145) Potassium Level 3.7 mmol/L (3.5-5.1) Chloride Level 100 mmol/L (98-107) Carbon Dioxide Level 32 mmol/L (21-32) Anion Gap 8 (6-14) Blood Urea Nitrogen 31 mg/dL (8-26) H Creatinine 2.4 mg/dL (0.7-1.3) H Estimated GFR (Cockcroft-Gault) 27.8 BUN/Creatinine Ratio 13 (6-20) Glucose Level 86 mg/dL (70-99) Calcium Level 8.2 mg/dL (8.5-10.1) L Total Bilirubin 1.4 mg/dL (0.2-1.0) H Aspartate Amino Transf (AST/SGOT) 59 U/L (15-37) H Alkaline Phosphatase 154 U/L (46-116) H Total Protein 6.4 g/dL (6.4-8.2) Albumin 2.3 g/dL (3.4-5.0) L Albumin/Globulin Ratio 0.6 (1.0-1.7) L ASSESSMENT: 1. Chronic atrial fibrillation with intermittent rapid ventricular response on amiodarone, Eliquis and metoprolol therapies 2. Ischemic cardiomyopathy with an ejection fraction of 20 to 25% 3. End-stage renal disease on hemodialysis 4. History of right leg necrotizing fasciitis currently being treated with wound care and plastic surgery 5. Hypertension 6. Dyslipidemia 7. Failure to thrive PLAN: 1. Have reviewed extensive records and currently they have plans for AV node ablation with SUPPLY CHAIN INTERN-P implantation, I am unclear as to why this was planned but presumably this was due to difficulty controlling heart rates although currently he appears to be well controlled on amiodarone and metoprolol therapies. 2. Reinitiate Eliquis 5 mg p.o. twice daily. I confirmed with the patient that he not have any bleeding issues. I reviewed outpatient records and he was on Eliquis and tolerating this well according to records. 3. It appears that somewhere between discharge at and [facility] and readmission back care [place] he was started on digoxin. He is currently on 3 therapies as noted with amiodarone, metoprolol and digoxin. Given his renal failure we will stop his digoxin. Supportive care for now. He is unable to be started on Entresto or other goal- directed medical therapy such as spironolactone given his renal failure. Justicifation of Admission Dx: Justifications for Admission: Justification of Admission Dx: N/A ADAMARIS VALLEJO MD Mar 05, 2021 12:08
[2021-03-05] MEDS: APIXABAN 5 MG TABLET. PO SCH ×2 (12:23→20:24)
[2021-03-05 15:00] VITALS: BP 116/61
[2021-03-05 19:00] VITALS: BP 116/57
[2021-03-05] MEDS: ATORVASTATIN CALCIUM 20 MG TABLET PO SCH (20:24)
[2021-03-05] MEDS: ZINC SULFATE 220 MG CAPSULE. PO SCH (20:25)
[2021-03-05 22:25] VITALS: BP 117/63
[2021-03-06 02:37] VITALS: BP 130/68
[2021-03-06 04:26] LABS: CALCIUM 7.8 mg/dL (8.5-10.1); CREATININE 3.6 mg/dL (0.7-1.3); GFR 17.4; POTASSIUM 3.7 mmol/L (3.5-5.1)
[2021-03-06] MEDS ORDERED: DIALYSIS PATIENT. MC PRN (07:00)
[2021-03-06] MEDS ORDERED: IV NORMAL SALINE 1000ML BAG 1,000 ML IV PRN ×2 (07:00)
--- NOTE | 2021-03-06 09:22 | PDOC ---
Infectious Disease Note Subjective: Subjective Patient without complaints Vital Signs: Vital Signs Vital Signs Date Time Temp Pulse Resp B/P (MAP) Pulse Ox O2 Delivery O2 Flow Rate FiO2 03/06/21 02:37 98.6 70 18 130/68 (88) 96 Room Air 98.6 Physical Exam: PHYSICAL EXAM GENERAL: Alert, oriented x 3 male, lying in bed comfortably, in no acute distress. HEENT: Normocephalic, atraumatic. Anicteric. No thrush. Oral mucosa moist. NECK: Supple. LUNGS: Clear bilaterally. HEART: S1, S2. No murmurs. CHEST WALL: Right chest wall hemodialysis catheter in place, clean. ABDOMEN: Soft, nontender, nondistended, no rebound, no guarding. EXTREMITIES: Right lower extremity dressing intact, in place, dry, just changed. The patient requested not to take it down. Wound pictures reviewed in wound notes. NEUROLOGIC: Alert and oriented x 3, grossly nonfocal. PSYCHIATRIC: Calm and cooperative. Medications: Inpatient Meds: Medications reviewed. Labs: Lab Laboratory Tests Test 03/06/21 04:00 Sodium Level 137 mmol/L (136-145) Potassium Level 3.7 mmol/L (3.5-5.1) Chloride Level 100 mmol/L (98-107) Carbon Dioxide Level 34 mmol/L (21-32) Anion Gap 3 (6-14) Blood Urea Nitrogen 46 mg/dL (8-26) Creatinine 3.6 mg/dL (0.7-1.3) Estimated GFR (Cockcroft-Gault) 17.4 Glucose Level 100 mg/dL (70-99) Calcium Level 7.8 mg/dL (8.5-10.1) Objective: Assessment: 1. Chronic right lower extremity wound with history of necrotizing fasciitis affecting the right lower extremity at [facility] 10/2020, treated with antibiotics, followed by split-thickness skin graft from upper thigh. Patient was not on any antibiotics for a couple of months prior to this admission 2. Generalized weakness. Improving 3. Leukocytosis. 4. Acute kidney injury, on hemodialysis currently. 5. Hypertension. 6. Coronary artery disease. 7. Atrial fibrillation. 8. Pyuria at [facility]. Urine culture less than 10K [place] albicans 9. Pulmonary infiltrates at [facility]. Plan: Plan of Care Monitor off antibiotics Wound care as directed Continue supportive care Main issue is placement DOUG GONZALEZ MD Mar 06, 2021 09:22
--- NOTE | 2021-03-06 10:10 | PN ---
DATE: 03/06/2021 SUBJECTIVE: The patient is resting, slightly propped up in bed, having his scheduled hemodialysis. He is awake, alert. On questioning him, he denied any complaint. The nursing staff did not voice any concern. PHYSICAL EXAMINATION: GENERAL: When I examined him, he looked pale, somewhat cachectic, but not jaundiced, cyanosed, no thyromegaly. No jugular venous distention. No lower limb edema. VITAL SIGNS: His heart rate was 70, blood pressure is 130/68, temperature was 98.6, respiratory rate was 18 and oxygen saturation was 96%. HEAD, EYES, EARS, NOSE, AND THROAT: Normocephalic, atraumatic. NECK: Supple. HEART: Showed normal first and second heart sounds. No gallop or murmur. CHEST: Clear to auscultation. No crepitation or rhonchi. ABDOMEN: Distended, soft, nontender. NEUROLOGIC: He was grossly intact. His intake was 890, output was 750. LABORATORY DATA: As of this morning, his serum sodium 137, potassium 3.7, chloride 100, bicarbonate 34, anion gap of 3, BUN 46, creatinine 3.6. Estimated GFR was 17 mL per minute. His glucose 100 and calcium was 7.8. ASSESSMENT: 1. Acute kidney injury, requiring hemodialysis, scheduled on Tuesday, Tuesday, and Tuesday. His urine output is reasonable, although serum creatinine continued to rise between dialysis. 2. History of necrotizing fasciitis, treated with IV antibiotic and split thickness skin graft to the right leg taken from the rest of the right thigh. 3. The patient has multiple other medical problems including: A. Hypertension. B. Coronary artery disease, status post percutaneous coronary angioplasty and stent deployment. C. Atrial fibrillation, which he underwent ablation. His heart rate is well controlled. He is currently on amiodarone, metoprolol as well as digoxin. He is also well anticoagulated on apixaban 5 mg twice a day. PLAN: To continue with hemodialysis as per Nephrology team. His antibiotics were discontinued. Continue with wound care. Continue with physical and occupational therapy. YONG/[facility] [place]: YONG/fausto TID: [id number]
--- NOTE | 2021-03-06 10:33 | PDOC ---
Renal-Progress Notes Subjective Notes Notes SLEEPY EARLY THIS AM History of Present Illness Hx of present illness STABLE Vitals Vitals Vital Signs Date Time Temp Pulse Resp B/P (MAP) Pulse Ox O2 Delivery O2 Flow Rate FiO2 03/06/21 02:37 98.6 70 18 130/68 (88) 96 Room Air 98.6 Weight Weight [ ] I.O. Intake and Output Intake and Output 03/06/21 07:00 Intake Total 1500 ml Output Total 1150 ml Balance 350 ml Intake Oral 1500 ml Output Urine Total 1150 ml # Voids 3 # Bowel Movements 1 Labs Labs Laboratory Tests Test 03/06/21 04:00 Sodium Level 137 mmol/L (136-145) Potassium Level 3.7 mmol/L (3.5-5.1) Chloride Level 100 mmol/L (98-107) Carbon Dioxide Level 34 mmol/L (21-32) Anion Gap 3 (6-14) Blood Urea Nitrogen 46 mg/dL (8-26) Creatinine 3.6 mg/dL (0.7-1.3) Estimated GFR (Cockcroft-Gault) 17.4 Glucose Level 100 mg/dL (70-99) Calcium Level 7.8 mg/dL (8.5-10.1) Hepatitis B Surface Antigen Nonreactive (Nonreactive) Review of Systems Constitutional: yes: alert, other (SLEEPY) Ears/Nose/Throat: Yes: no symptom reported Eyes: Yes: no symptom reported Pulmonary: Yes no symptom reported Cardiovascular: Yes no symptom reported Gastrointestional: Yes: no symptom reported Genitourinary: Yes: no symptom reported Musculoskeletal: Yes: no symptom reported Psychiatric/Neurological: Yes: no symptom reported Endocrine: Yes: no symptom reported Physical Exam General Appearance: no apparent distress Skin: warm Respiratory: bilateral CTA Heart: S1S2 Abdomen: soft, bowel sounds present Genitourinary: bladder flat Extremities: pulses present Neurology: alert Assessment Assessment IMP [id number] SEVERE CM WITH EF OF 15% PROB HCAP HX HTN S/P RIGHT LE NECROTIZING FASCIITIS S/P SKIN GRAFT MILD HYPOKALEMIA - CORRECTED PYURIA ANEMIA PLAN CONT EPO HD TODAY UF TO TW ANTIBIOTICS WILL CONT TO MONITOR FOR ANDREW RECOVERY WILL FOLLOW JIMMY ROSA MD Mar 06, 2021 10:33
[2021-03-06 10:48] VITALS: BP 138/70
[2021-03-06] MEDS: LACTOBACILLUS RHAMNOSUS GG 1 CAPSULE. PO SCH ×2 (10:49→22:07)
[2021-03-06] MEDS: ACETAMINOPHEN 325 MG TABLET. PO PRN (10:50)
[2021-03-06] MEDS: AMIODARONE HCL 200 MG TABLET. PO SCH ×2 (10:50→22:07)
[2021-03-06] MEDS: DOCUSATE SODIUM 100 MG CAPSULE. PO SCH ×2 (10:50→22:07)
[2021-03-06] MEDS: FOLIC/VIT B COMP W-C (RENAL) TABLET. PO SCH (10:51)
[2021-03-06] MEDS: APIXABAN 5 MG TABLET. PO SCH ×2 (10:51→22:07)
[2021-03-06] MEDS: TORSEMIDE 20 MG TABLET. PO SCH (10:51)
[2021-03-06] MEDS: METOPROLOL SUCC 24HR ER 25 MG TAB.ER.24H. PO SCH (10:51)
[2021-03-06] MEDS: FLUTICASONE 50MCG/NASAL SPRAY 16GM BOTTLE. NS SCH (10:52)
--- NOTE | 2021-03-06 13:10 | PDOC ---
CARDIOLOGY PROGRESS NOTE SUBJECTIVE: No new events. Awaiting placement at rehab. OBJECTIVE: Vital Signs/I&O: Vital Signs Date Time Temp Pulse Resp B/P (MAP) Pulse Ox O2 Delivery O2 Flow Rate FiO2 03/06/21 10:55 Room Air 03/06/21 10:51 74 138/70 03/06/21 10:48 97.6 16 94 97.6 I & O 03/05/21 03/05/21 03/06/21 14:59 22:59 06:59 Intake Total 480 ml 370 ml 650 ml Output Total 200 ml 500 ml 450 ml Balance 280 ml -130 ml 200 ml Objective: GEN.: No apparent distress. Alert and oriented. HEENT: Head is normocephalic, atraumatic NECK: Supple. LUNGS: Clear to auscultation. HEART: RRR, S1, S2 present. Peripheral pulses intact ABDOMEN: Soft, nontender. Positive bowel sounds. EXTREMITIES: Without any cyanosis. NEUROLOGIC: Normal speech, normal tone PSYCHIATRIC: Normal affect, normal mood. SKIN: No ulcerations CURRENT MEDICATIONS: Meds reviewed. DIAGNOSTIC TESTING: Labs: Laboratory Tests 03/06/21 04:00 Laboratory Tests Test 03/06/21 04:00 Sodium Level 137 mmol/L (136-145) Potassium Level 3.7 mmol/L (3.5-5.1) Chloride Level 100 mmol/L (98-107) Carbon Dioxide Level 34 mmol/L (21-32) H Anion Gap 3 (6-14) L Blood Urea Nitrogen 46 mg/dL (8-26) H Creatinine 3.6 mg/dL (0.7-1.3) H Estimated GFR (Cockcroft-Gault) 17.4 Glucose Level 100 mg/dL (70-99) H Calcium Level 7.8 mg/dL (8.5-10.1) L Hepatitis B Surface Antigen Nonreactive (Nonreactive) ASSESSMENT: ASSESSMENT: 1. Chronic atrial fibrillation with intermittent rapid ventricular response on amiodarone, Eliquis and metoprolol therapies 2. Ischemic cardiomyopathy with an ejection fraction of 20 to 25% 3. End-stage renal disease on hemodialysis 4. History of right leg necrotizing fasciitis currently being treated with wound care and plastic surgery 5. Hypertension 6. Dyslipidemia 7. Failure to thrive PLAN: 1. Have reviewed extensive [facility] records and currently they have plans for AV node ablation with [employer]-P implantation, I am unclear as to why this was planned but presumably this was due to difficulty controlling heart rates although currently he appears to be well controlled on amiodarone and metoprolol therapies. 2. Reinitiate Eliquis 5 mg p.o. twice daily. I confirmed with the patient that he not have any bleeding issues. I reviewed outpatient records and he was on Eliquis and tolerating this well according to [facility] records. Supportive care for now. He is unable to be started on Entresto or other goal- directed medical therapy such as spironolactone given his renal failure. Justicifation of Admission Dx: Justifications for Admission: Justification of Admission Dx: N/A ADAMARIS VALLEJO MD Mar 06, 2021 13:10
[2021-03-06 14:56] VITALS: BP 141/76
[2021-03-06 19:10] VITALS: BP 104/59
[2021-03-06] MEDS: ZINC SULFATE 220 MG CAPSULE. PO SCH (22:07)
[2021-03-06] MEDS: ATORVASTATIN CALCIUM 20 MG TABLET PO SCH (22:07)
[2021-03-06] MEDS: EPOETIN ALFA-EPBX for ESRD 20,000 UNIT/ML VIAL. SQ SCH (22:08)
[2021-03-06 23:03] VITALS: BP 124/64
[2021-03-07 03:15] VITALS: BP 123/67
[2021-03-07 07:55] VITALS: BP 145/77
[2021-03-07] MEDS: LACTOBACILLUS RHAMNOSUS GG 1 CAPSULE. PO SCH ×2 (08:26→21:08)
[2021-03-07] MEDS: FOLIC/VIT B COMP W-C (RENAL) TABLET. PO SCH (08:26)
[2021-03-07] MEDS: METOPROLOL SUCC 24HR ER 25 MG TAB.ER.24H. PO SCH (08:27)
[2021-03-07] MEDS: APIXABAN 5 MG TABLET. PO SCH ×2 (08:27→21:08)
[2021-03-07] MEDS: DOCUSATE SODIUM 100 MG CAPSULE. PO SCH ×2 (08:27→21:08)
[2021-03-07] MEDS: AMIODARONE HCL 200 MG TABLET. PO SCH ×2 (08:28→21:08)
[2021-03-07] MEDS: FLUTICASONE 50MCG/NASAL SPRAY 16GM BOTTLE. NS SCH (08:29)
[2021-03-07] MEDS: TORSEMIDE 20 MG TABLET. PO SCH (08:32)
--- NOTE | 2021-03-07 09:29 | PN ---
DATE: 03/07/2021 SUBJECTIVE: The patient is resting, slightly propped up in bed, in no apparent distress, awake, alert. On questioning her, denied any complaint. He was concerned as his tested positive for coronavirus; however, we did his coronavirus both rapid and PCR and both were negative. He was dialyzed yesterday. PHYSICAL EXAMINATION: GENERAL: When I examined him, he looked well and was clearly in no apparent respiratory distress, pale, but not jaundiced, cyanosed, no lymphadenopathy, no thyromegaly. No jugular venous distention. No limb edema. NEUROLOGIC: He is somewhat cachectic with a body mass index only 21.5 kilograms/square meter. The rest of clinical exam stable. Donor site on the anterior aspect of the right thigh is healing nicely and his wounds on the right lower leg are covered with dressing that is dry and intact. His intake over the last 24 hours was 1500, output was 1150. LABORATORY DATA: His most recent chemistry showed a BUN of 46 and creatinine 3.6. His H and H was 9 and 29 with normal white cell count and platelets. ASSESSMENT: 1. Acute kidney injury requiring hemodialysis scheduled Tuesday, Tuesday, Tuesday. His urine output is steadily rising, although serum creatinine continued to rise between dialysis schedule. 2. History of necrotizing fasciitis with IV antibiotic and split thickness skin graft to the right leg taken from the anterior aspect of the right thigh. 3. The patient has multiple other medical problems including: A. Hypertension. B. Coronary artery disease status post percutaneous coronary angioplasty and stent deployment. C. Atrial fibrillation for which he underwent amputation. His heart rate is well controlled. He is currently on amiodarone, metoprolol and digoxin. He also will anticoagulate on apixaban 5 mg twice a day. PLAN: To continue with hemodialysis. His antibiotics were discontinued. Continue with wound care. Continue with physical and occupational therapy. He will be discharged [facility] to a [place] [facility] facility on Tuesday. YONG/[facility] DR: Chadd TID: [id number]
--- NOTE | 2021-03-07 10:07 | PDOC ---
Infectious Disease Note Subjective: Subjective Patient without complaints no continues to have cough with white sputum Denies any fever, chills, nausea, vomiting, diarrhea, abdominal pain, symptoms Wound dressing was changed yesterday and patient says wound is stable Vital Signs: Vital Signs Vital Signs Date Time Temp Pulse Resp B/P (MAP) Pulse Ox O2 Delivery O2 Flow Rate FiO2 03/07/21 08:28 72 145/77 03/07/21 08:00 Room Air 03/07/21 07:55 98.1 18 97 98.1 Physical Exam: PHYSICAL EXAM GENERAL: Alert, oriented x 3 male, lying in bed comfortably, in no acute distress. HEENT: Normocephalic, atraumatic. Anicteric. No thrush. Oral mucosa moist. NECK: Supple. LUNGS: Clear bilaterally. HEART: S1, S2. No murmurs. CHEST WALL: Right chest wall hemodialysis catheter in place, clean. ABDOMEN: Soft, nontender, nondistended, no rebound, no guarding. EXTREMITIES: Right lower extremity dressing intact, in place, dry, just changed. The patient requested not to take it down. Wound pictures reviewed in wound notes. NEUROLOGIC: Alert and oriented x 3, grossly nonfocal. PSYCHIATRIC: Calm and cooperative. Medications: Inpatient Meds: Medications reviewed. Labs: Lab Laboratory Tests Test 03/06/21 14:13 SARS-CoV-2 RNA (ADILIA) Negative (Negative) SARS-CoV-2 Antigen (Rapid) Negative (NEGATIVE) Objective: Assessment: 1. Chronic right lower extremity wound with history of necrotizing fasciitis affecting the right lower extremity at [facility] 10/2020, treated with antibiotics, followed by split-thickness skin graft from upper thigh. Patient was not on any antibiotics for a couple of months prior to this admission 2. Generalized weakness. Improving 3. Leukocytosis. 4. Acute kidney injury, on hemodialysis currently. 5. Hypertension. 6. Coronary artery disease. 7. Atrial fibrillation. 8. Pyuria at [facility]. Urine culture less than 10K [place] albicans 9. Pulmonary infiltrates at [facility]. Plan: Plan of Care Monitor off antibiotics Wound care as directed Continue supportive care Awaiting placement ID will sign off Call with any questions DOUG GONZALEZ MD Mar 07, 2021 10:07
[2021-03-07 10:45] VITALS: BP 121/58
--- NOTE | 2021-03-07 12:11 | PDOC ---
Renal-Progress Notes Subjective Notes Notes NO NEW COMPLAINTS History of Present Illness Hx of present illness STABLE Vitals Vitals Vital Signs Date Time Temp Pulse Resp B/P (MAP) Pulse Ox O2 Delivery O2 Flow Rate FiO2 03/07/21 10:45 98.0 77 20 121/58 (79) 98 Room Air 98.0 Weight Weight [ ] I.O. Intake and Output Intake and Output 03/07/21 07:00 Intake Total 990 ml Output Total 450 ml Balance 540 ml Intake Oral 990 ml Output Urine Total 450 ml Labs Labs Laboratory Tests Test 03/06/21 14:13 SARS-CoV-2 RNA (ADILIA) Negative (Negative) SARS-CoV-2 Antigen (Rapid) Negative (NEGATIVE) Review of Systems Constitutional: yes: alert, other (SLEEPY) Ears/Nose/Throat: Yes: no symptom reported Eyes: Yes: no symptom reported Pulmonary: Yes no symptom reported Cardiovascular: Yes no symptom reported Gastrointestional: Yes: no symptom reported Genitourinary: Yes: no symptom reported Musculoskeletal: Yes: no symptom reported Psychiatric/Neurological: Yes: no symptom reported Endocrine: Yes: no symptom reported Physical Exam General Appearance: no apparent distress Skin: warm Respiratory: bilateral CTA Heart: S1S2 Abdomen: soft, bowel sounds present Genitourinary: bladder flat Extremities: pulses present Neurology: alert Assessment Assessment IMP [id number] SEVERE CM WITH EF OF 15% PROB HCAP HX HTN S/P RIGHT LE NECROTIZING FASCIITIS S/P SKIN GRAFT MILD HYPOKALEMIA - CORRECTED PYURIA ANEMIA PLAN CONT EPO HD TUESDAY OFF ANTIBIOTICS WOUND CARE WILL CONT TO MONITOR FOR ANDREW RECOVERY WILL FOLLOW JIMMY ROSA MD Mar 07, 2021 12:11
[2021-03-07 14:43] VITALS: BP 117/67
[2021-03-07 19:46] VITALS: BP 112/62
[2021-03-07] MEDS: ZINC SULFATE 220 MG CAPSULE. PO SCH (21:08)
[2021-03-07] MEDS: ATORVASTATIN CALCIUM 20 MG TABLET PO SCH (21:09)
[2021-03-07 23:06] VITALS: BP 152/81
[2021-03-08 03:55] VITALS: BP 134/66
[2021-03-08 06:46] VITALS: BP 150/66
--- NOTE | 2021-03-08 07:34 | RAD ---
EXAM: Abdomen sonogram. HISTORY: Abnormal liver enzyme laboratory values. TECHNIQUE: Sonographic imaging of the abdomen was performed. COMPARISON: None. FINDINGS: The liver is mildly enlarged. No focal hepatic lesion is seen. The gallbladder is unremarka ble. The common bile duct is normal in caliber. The right kidney, pancreas and if indicated are unrem arkable. There is a right pleural effusion. IMPRESSION: 1. Mild hepatomegaly. 2. Right pleural effusion. Electronically signed by: Renee Arcos MD (03/08/2021 7:32 AM) [id number]
[2021-03-08] MEDS: DOCUSATE SODIUM 100 MG CAPSULE. PO SCH ×2 (08:19→21:20)
[2021-03-08] MEDS: LACTOBACILLUS RHAMNOSUS GG 1 CAPSULE. PO SCH ×2 (08:19→21:20)
[2021-03-08] MEDS: METOPROLOL SUCC 24HR ER 25 MG TAB.ER.24H. PO SCH (08:19)
[2021-03-08] MEDS: FOLIC/VIT B COMP W-C (RENAL) TABLET. PO SCH (08:19)
[2021-03-08] MEDS: APIXABAN 5 MG TABLET. PO SCH ×2 (08:20→21:20)
[2021-03-08] MEDS: AMIODARONE HCL 200 MG TABLET. PO SCH ×2 (08:20→21:21)
[2021-03-08] MEDS: FLUTICASONE 50MCG/NASAL SPRAY 16GM BOTTLE. NS SCH (08:23)
[2021-03-08] MEDS: TORSEMIDE 20 MG TABLET. PO SCH (08:25)
--- NOTE | 2021-03-08 10:09 | PDOC ---
CARDIOLOGY PROGRESS NOTE SUBJECTIVE: No acute events overnight. The patient denies any chest pain or dyspnea. No issues from nursing staff Awaiting placement for rehabilitation Patient does report that he is quite sleepy this morning due to recurrent nursing interruptions overnight. OBJECTIVE: Vital Signs/I&O: Vital Signs Date Time Temp Pulse Resp B/P (MAP) Pulse Ox O2 Delivery O2 Flow Rate FiO2 03/08/21 08:20 81 150/66 03/08/21 08:00 Room Air 03/08/21 06:46 98.4 16 98 98.4 I & O 03/07/21 03/07/21 03/08/21 15:00 23:00 07:00 Intake Total 600 ml 290 ml 0 ml Output Total 300 ml 150 ml 400 ml Balance 300 ml 140 ml -400 ml Objective: The patient appeared well nourished and normally developed. Head exam is unremarkable. No scleral icterus or corneal arcus noted. Neck is without jugular venous distension, thyromegaly, or carotid bruits. Carotid upstrokes are brisk bilaterally. Lungs are clear to auscultation and percussion. Cardiac exam reveals the PMI to be normally sized and situated. Rhythm is irregular. First and second heart sounds normal. No murmurs, rubs or gallops. Abdominal exam reveals normal bowel sounds, no masses, no organomegaly and no aortic enlargement. Extremities are nonedematous and both femoral and pedal pulses are normal. Msk: No traumua Neuro: No focal deficits CURRENT MEDICATIONS: Apixaban 5 mg p.o. twice daily Metoprolol 25 mg daily Torsemide 40 mg daily Atorvastatin 20 mg Amiodarone 100 mg p.o. twice daily DIAGNOSTIC TESTING: Labs Telemetry reviewed ASSESSMENT: 1. Chronic atrial fibrillation with intermittent rapid ventricular response on amiodarone, Eliquis and metoprolol therapies 2. Ischemic cardiomyopathy with an ejection fraction of 20 to 25% 3. End-stage renal disease on hemodialysis 4. History of right leg necrotizing fasciitis currently being treated with wound care and plastic surgery 5. Hypertension 6. Dyslipidemia 7. Failure to thrive PLAN: 1. Continue current medical therapy. 2. Again I am unclear as to the indication for his AV node ablation as he is maintaining appropriate heart rate. Defer this to cardiology/EP service at [facility]. Supportive care. We will follow along closely. Justicifation of Admission Dx: Justifications for Admission: Justification of Admission Dx: N/A ADAMARIS VALLEJO MD Mar 08, 2021 10:08
--- NOTE | 2021-03-08 10:37 | PDOC ---
Renal-Progress Notes Subjective Notes Notes NO NEW COMPLAINTS History of Present Illness Hx of present illness STABLE Vitals Vitals Vital Signs Date Time Temp Pulse Resp B/P (MAP) Pulse Ox O2 Delivery O2 Flow Rate FiO2 03/08/21 08:20 81 150/66 03/08/21 08:00 Room Air 03/08/21 06:46 98.4 16 98 98.4 Weight Weight [ ] I.O. Intake and Output Intake and Output 03/08/21 07:00 Intake Total 890 ml Output Total 850 ml Balance 40 ml Intake Oral 890 ml Output Urine Total 850 ml # Voids 1 # Bowel Movements 1 Review of Systems Constitutional: yes: alert, other (SLEEPY) Ears/Nose/Throat: Yes: no symptom reported Eyes: Yes: no symptom reported Pulmonary: Yes no symptom reported Cardiovascular: Yes no symptom reported Gastrointestional: Yes: no symptom reported Genitourinary: Yes: no symptom reported Musculoskeletal: Yes: no symptom reported Psychiatric/Neurological: Yes: no symptom reported Endocrine: Yes: no symptom reported Physical Exam General Appearance: no apparent distress Skin: warm Respiratory: bilateral CTA Heart: S1S2 Abdomen: soft, bowel sounds present Genitourinary: bladder flat Extremities: pulses present Neurology: alert Assessment Assessment IMP [id number] SEVERE CM WITH EF OF 15% PROB HCAP HX HTN S/P RIGHT LE NECROTIZING FASCIITIS S/P SKIN GRAFT MILD HYPOKALEMIA - CORRECTED PYURIA ANEMIA PLAN CONT EPO HD TOMORROW WAITING FOR PLACEMENT OFF ANTIBIOTICS WOUND CARE WILL CONT TO MONITOR FOR ANDREW RECOVERY WILL FOLLOW JIMMY ROSA MD Mar 08, 2021 10:37
[2021-03-08 11:00] VITALS: BP 119/70
--- NOTE | 2021-03-08 12:27 | PN ---
DATE: 03/08/2021 SUBJECTIVE: The patient is resting slightly propped up in bed, sleeping comfortably, in no apparent distress. On questioning him, he denied any complaint. The nursing staff did not voice any concerns that he had an eventful night. Continued to be in atrial fibrillation with rate controlled, well anticoagulated on apixaban. He continued to require hemodialysis. He is scheduled for dialysis Tuesday, Tuesday, and Tuesday. PHYSICAL EXAMINATION: GENERAL: When I examined him this morning, he looked pale, not jaundiced or cyanosed. No thyromegaly. No jugular venous distention. No limb edema. VITAL SIGNS: His heart rate was 81, blood pressure was 150/66, temperature was 98.4, respiratory rate was 16 and his oxygen saturation was 98% on room air. The rest of exam is stable. His intake was 990, output was 450. LABORATORY DATA: No labs were ordered this morning. ASSESSMENT: 1. Acute kidney injury, requiring hemodialysis, scheduled Tuesday, Tuesday, and Tuesday. His urine output is steadily rising; however, his serum creatinine continued to rise between dialysis days. 2. History of necrotizing fasciitis, treated with IV antibiotic and split thickness skin graft to the right leg taken from his anterior aspect of the right thigh. 3. The patient has multiple other medical problems including: A. Hypertension. B. Coronary artery disease status post percutaneous coronary angioplasty and stent deployment. C. Atrial fibrillation for which he underwent ablation. Currently, his heart rate is well controlled on amiodarone, metoprolol and digoxin. He is also well anticoagulated on apixaban 5 mg twice a day. PLAN: To continue with hemodialysis. Continue with physical and occupational therapy. Continue with wound care. He will be discharged to [facility] facility if his insurance approves that tomorrow. YONG/DUNIA/[facility]GHIA DR: Chadd TID: [id number]
[2021-03-08 15:00] VITALS: BP 115/70
[2021-03-08 19:00] VITALS: BP 107/58
[2021-03-08] MEDS: ATORVASTATIN CALCIUM 20 MG TABLET PO SCH (21:20)
[2021-03-08] MEDS: ZINC SULFATE 220 MG CAPSULE. PO SCH (21:20)
[2021-03-08 23:00] VITALS: BP 120/66
[2021-03-09 03:00] VITALS: BP 118/61
[2021-03-09 06:06] LABS: HEMATOCRIT 27.3 % (39.0-53.0); HEMOGLOBIN 8.6 g/dL (13.0-17.5); RED BLOOD COUNT 3.18 x10^6/uL (4.30-5.70); RED CELL DISTRIBUTION WIDTH 19.8 % (11.5-14.5); WHITE BLOOD COUNT 9.2 x10^3/uL (4.0-11.0)
[2021-03-09 06:24] LABS: ALBUMIN 2.3 g/dL (3.4-5.0); ALBUMIN/GLOBULIN RATIO 0.5 (1.0-1.7); CALCIUM 8.3 mg/dL (8.5-10.1); CREATININE 3.5 mg/dL (0.7-1.3); POTASSIUM 3.6 mmol/L (3.5-5.1); TOTAL PROTEIN 6.5 g/dL (6.4-8.2)
[2021-03-09 07:00] VITALS: BP 111/64
--- NOTE | 2021-03-09 08:32 | PN ---
DATE: 03/09/2021 SUBJECTIVE: The patient is resting, slightly propped up in bed, in no apparent respiratory distress, awake, alert. He apparently has multiple episodes of epistaxis. Denied any bleeding from other sites. He was started recently back on his apixaban for his atrial fibrillation. OBJECTIVE: GENERAL: On examining him, he looked well and was clearly in no apparent respiratory distress, pale, cachectic, but not jaundiced, cyanosed or thyromegaly. No jugular venous distention. No limb edema. VITAL SIGNS: His heart rate was 74, blood pressure is 118/61, temperature was 97.8, respiratory rate was 16 and oxygen saturation was 95% on room air. HEAD, EYES, EARS, NOSE AND THROAT: Normocephalic, atraumatic. NECK: Supple. HEART: Normal first and second heart sounds, no gallop or murmur. CHEST: Clear to auscultation, no crepitation or rhonchi. ABDOMEN: Was scaphoid, soft, nontender. NEUROLOGIC: He was grossly intact. EXTREMITIES: Wound on his right leg covered with dressing. His intake was 890, output was 850. LABORATORY DATA: As of this morning, his white cell count was 9200, hemoglobin was 8.6, hematocrit 27, MCV 86 and platelet count of 136,000. Serum sodium was 141, potassium 3.6, chloride 101, bicarbonate 29, anion gap of 11, BUN 45, creatinine 3.5. Estimated GFR was 18 mL per minute. His glucose was 84, calcium was 8.3. Total bilirubin, AST, ALT were normal. Alkaline phosphatase slightly elevated. Total protein 6.5, albumin 2.3. His abdominal ultrasound showed that liver is mildly enlarged. No focal hepatic lesion is seen. The gallbladder is unremarkable. The common bile duct is normal in caliber. The right kidney, pancreas are unremarkable. There is small right side pleural effusion. ASSESSMENT: 1. Acute kidney injury requiring hemodialysis scheduled Tuesday, Tuesday, Tuesday. His urine output is improving; however, his serum creatinine continued to rise between dialysis days. 2. History of necrotizing fasciitis, treated with IV antibiotic. Split thickness skin graft to the right leg from his anterior aspect of the right thigh. 3. The patient has multiple other medical problems including: A. Hypertension. B. Coronary artery disease, status post percutaneous coronary angioplasty and stent deployment. C. Atrial fibrillation for which he underwent ablation. Currently, his heart rate is well controlled on amiodarone, metoprolol and digoxin. He was started recently on apixaban 5 mg twice a day. Unfortunately, he has multiple episodes of epistaxis. PLAN: To obviously hold his apixaban today. Continue with hemodialysis. Continue with physical and occupational therapy. Continue with wound care. He will be discharged to a senior living facility if insurance approves that. KYLIE DR: Chadd TID: [id number]
[2021-03-09] MEDS: APIXABAN 5 MG TABLET. PO SCH (09:00)
[2021-03-09] MEDS ORDERED: HYDR-2761 PO (09:12)
[2021-03-09] MEDS ORDERED: TRAM50TA PO (09:12)
--- NOTE | 2021-03-09 09:14 | SNU/HH DC ---
DISCHARGE ORDERS DISCHARGE INFORMATION: DISCHARGE DATE: Mar 09, 2021 FINAL DIAGNOSIS ESRD ON HD Atrial fibrillation generalized weakness CONDITION ON DISCHARGE: Stable CODE STATUS: Code Status: Full HALFWAY: SNF STAY <30 DAYS: Yes POST DISCHARGE ORDERS: ACTIVITY ORDERS: Activity as tolerated DIET AFTER DISCHARGE: Renal TREATMENT/EQUIPMENT ORDERS: Physical Therapy For: Evalulation/Treatment Occupational Therapy For: Evaluation/Treatment DISCHARGE MEDICATIONS: Home Meds Active Scripts Tramadol Hcl (TRAMADOL HCL) 50 Mg Tablet, 50 MG PO Q6HRS PRN for PAIN for 30 Days, #120 TAB Prov:MORGAN MANDEL MD 03/09/21 Hydrocodone Bit/Acetaminophen (HYDROCODONE-APAP 5-325 ) 1 Tab Tablet, 1 TAB PO Q4H PRN for PAIN for 30 Days, #180 TAB 0 Refills Prov:MORGAN MANDEL MD 03/09/21 MORGAN MANDEL MD Mar 09, 2021 09:14
[2021-03-09] MEDS ORDERED: IV NORMAL SALINE 1000ML BAG 1,000 ML IV PRN (09:30)
[2021-03-09] MEDS ORDERED: DIALYSIS PATIENT. MC PRN (09:30)
[2021-03-09 11:00] VITALS: BP 126/58
--- NOTE | 2021-03-09 11:03 | NUR ---
NITHYA following. Discussed with RN, pt accepted at [facility] pending insurance. [facility] requesting new COVID PCR due to pt having an exposure from his . Awaiting COVID result and insurance auth. Insurance requested was submitted on Sunday 03/04. NITHYA will continue to follow.
--- NOTE | 2021-03-09 11:30 | PDOC ---
Renal-Progress Notes Subjective Notes Notes NO NEW COMPLAINTS History of Present Illness Hx of present illness STABLE Vitals Vitals Vital Signs Date Time Temp Pulse Resp B/P (MAP) Pulse Ox O2 Delivery O2 Flow Rate FiO2 03/09/21 07:00 97.6 80 16 111/64 (80) 96 97.6 03/08/21 20:00 Room Air Weight Weight [ ] I.O. Intake and Output Intake and Output 03/09/21 07:00 Intake Total 600 ml Output Total 850 ml Balance -250 ml Intake Oral 600 ml Output Urine Total 850 ml # Voids 1 Labs Labs Laboratory Tests Test 03/09/21 05:40 White Blood Count 9.2 x10^3/uL (4.0-11.0) Red Blood Count 3.18 x10^6/uL (4.30-5.70) Hemoglobin 8.6 g/dL (13.0-17.5) Hematocrit 27.3 % (39.0-53.0) Mean Corpuscular Volume 86 fL (79-100) Mean Corpuscular Hemoglobin 27 pg (25-35) Mean Corpuscular Hemoglobin Concent 32 g/dL (31-37) Red Cell Distribution Width 19.8 % (11.5-14.5) Platelet Count 136 x10^3/uL (140-400) Sodium Level 141 mmol/L (136-145) Potassium Level 3.6 mmol/L (3.5-5.1) Chloride Level 101 mmol/L (98-107) Carbon Dioxide Level 29 mmol/L (21-32) Anion Gap 11 (6-14) Blood Urea Nitrogen 45 mg/dL (8-26) Creatinine 3.5 mg/dL (0.7-1.3) Estimated GFR (Cockcroft-Gault) 18.0 BUN/Creatinine Ratio 13 (6-20) Glucose Level 84 mg/dL (70-99) Calcium Level 8.3 mg/dL (8.5-10.1) Total Bilirubin 1.0 mg/dL (0.2-1.0) Aspartate Amino Transf (AST/SGOT) 35 U/L (15-37) Alanine Aminotransferase (ALT/SGPT) 49 U/L (16-63) Alkaline Phosphatase 152 U/L (46-116) Total Protein 6.5 g/dL (6.4-8.2) Albumin 2.3 g/dL (3.4-5.0) Albumin/Globulin Ratio 0.5 (1.0-1.7) Review of Systems Constitutional: yes: alert, other (SLEEPY) Ears/Nose/Throat: Yes: no symptom reported Eyes: Yes: no symptom reported Pulmonary: Yes no symptom reported Cardiovascular: Yes no symptom reported Gastrointestional: Yes: no symptom reported Genitourinary: Yes: no symptom reported Musculoskeletal: Yes: no symptom reported Psychiatric/Neurological: Yes: no symptom reported Endocrine: Yes: no symptom reported Physical Exam General Appearance: no apparent distress Skin: warm Respiratory: bilateral CTA Heart: S1S2 Abdomen: soft, bowel sounds present Genitourinary: bladder flat Extremities: pulses present Neurology: alert Assessment Assessment IMP [id number] SEVERE CM WITH EF OF 15% PROB HCAP HX HTN S/P RIGHT LE NECROTIZING FASCIITIS S/P SKIN GRAFT MILD HYPOKALEMIA - CORRECTED PYURIA ANEMIA PLAN CONT EPO HD TODAY UF TO TW WAITING FOR PLACEMENT OFF ANTIBIOTICS WOUND CARE WILL CONT TO MONITOR FOR ANDREW RECOVERY WILL FOLLOW JIMMY ORSA MD Mar 09, 2021 11:30
--- NOTE | 2021-03-09 12:27 | PDOC ---
GEORGE PADILLA HEAD BANQUET WAITRESS 03/09/21 1227: CARDIO Progress Notes Date and Time Date of Service 03/09/21 Time of Evaluation 1220 Subjective Subjective: No Chest Pain, No shortness of breath, No Palpitations, Other (having nose bleed) Vitals Vitals Vital Signs Date Time Temp Pulse Resp B/P (MAP) Pulse Ox O2 Delivery O2 Flow Rate FiO2 03/09/21 07:00 97.6 80 16 111/64 (80) 96 97.6 03/08/21 20:00 Room Air Weight Weight [ ] Input and Output Intake and Output Intake and Output 03/09/21 07:00 Intake Total 600 ml Output Total 850 ml Balance -250 ml Intake Oral 600 ml Output Urine Total 850 ml # Voids 1 Laboratory Labs Laboratory Tests Test 03/09/21 05:40 White Blood Count 9.2 x10^3/uL (4.0-11.0) Red Blood Count 3.18 x10^6/uL (4.30-5.70) Hemoglobin 8.6 g/dL (13.0-17.5) Hematocrit 27.3 % (39.0-53.0) Mean Corpuscular Volume 86 fL (79-100) Mean Corpuscular Hemoglobin 27 pg (25-35) Mean Corpuscular Hemoglobin Concent 32 g/dL (31-37) Red Cell Distribution Width 19.8 % (11.5-14.5) Platelet Count 136 x10^3/uL (140-400) Sodium Level 141 mmol/L (136-145) Potassium Level 3.6 mmol/L (3.5-5.1) Chloride Level 101 mmol/L (98-107) Carbon Dioxide Level 29 mmol/L (21-32) Anion Gap 11 (6-14) Blood Urea Nitrogen 45 mg/dL (8-26) Creatinine 3.5 mg/dL (0.7-1.3) Estimated GFR (Cockcroft-Gault) 18.0 BUN/Creatinine Ratio 13 (6-20) Glucose Level 84 mg/dL (70-99) Calcium Level 8.3 mg/dL (8.5-10.1) Total Bilirubin 1.0 mg/dL (0.2-1.0) Aspartate Amino Transf (AST/SGOT) 35 U/L (15-37) Alanine Aminotransferase (ALT/SGPT) 49 U/L (16-63) Alkaline Phosphatase 152 U/L (46-116) Total Protein 6.5 g/dL (6.4-8.2) Albumin 2.3 g/dL (3.4-5.0) Albumin/Globulin Ratio 0.5 (1.0-1.7) Review of Systems Constitutional: yes: alert, other (SLEEPY) Ears/Nose/Throat: Yes: no symptom reported Eyes: Yes: no symptom reported Pulmonary: Yes no symptom reported Cardiovascular: Yes no symptom reported Gastrointestional: Yes: no symptom reported Genitourinary: Yes: no symptom reported Musculoskeletal: Yes: no symptom reported Psychiatric/Neurological: Yes: no symptom reported Endocrine: Yes: no symptom reported Physical Exam HEENT: Neck Supple W Full Motion Chest: Symmetric LUNGS: Clear to Auscultation Heart: irregularly irregular (AFIB, rate controlled ) Abdomen: Soft N/T Neurology: alert, oriented, follow commands Assessment Assessment 1. Persistent AFIB with intermittent RVR; rate now controlled. on amiodarone, Eliquis and metoprolol therapies 2. Ischemic cardiomyopathy with an EF of 20 to 25% 3. CAD; past PCI clinically stable 4. Chronic systolic CHF; clinically compensated 5. End-stage renal disease on HD 6. History of right leg necrotizing fasciitis currently being treated with wound care and plastic surgery 7. Hypertension; controlled 8. Dyslipidemia 9. Failure to thrive 10. Epistaxis Recommendations Hold Eliquis given persistent epistaxis Secondary prevention Continue metoprolol for rate control. consider discontinuing amiodarone given persistent AFIB and failed ablation and CVN in the past. Will defer to primary semiconductor bonder, Dr. Pope Fluid off loading per HD Consider for LAAO and AICD implantation, on an outpatient basis, for primiary prevention of SCD. Supportive care Justicifation of Admission Dx: Justifications for Admission: Justification of Admission Dx: N/A ADAMARIS VALLEJO MD 03/09/21 8623: CARDIO Progress Notes Plan Plan Patient seen and examined. Agree with above nurse practitioner note. No acute events overnight. He did have some episodes of epistaxis this morning. He is undergoing dialysis. Rate control from his atrial fibrillation is appropriate. He may benefit from a left atrial appendage occlusion device given his dialysis issues and likely lability with his anticoagulation. We will discussed with [facility] EP service. Supportive care. GEORGE PADILLA APRN Mar 09, 2021 12:27 ADAMARIS VALLEJO MD Mar 09, 2021 17:13
[2021-03-09] MEDS: DOCUSATE SODIUM 100 MG CAPSULE. PO SCH ×2 (12:44→20:31)
[2021-03-09] MEDS: TORSEMIDE 20 MG TABLET. PO SCH (12:44)
[2021-03-09] MEDS: FOLIC/VIT B COMP W-C (RENAL) TABLET. PO SCH (12:44)
[2021-03-09] MEDS: LACTOBACILLUS RHAMNOSUS GG 1 CAPSULE. PO SCH ×2 (12:45→20:30)
[2021-03-09] MEDS: AMIODARONE HCL 200 MG TABLET. PO SCH ×2 (12:45→20:31)
[2021-03-09] MEDS: METOPROLOL SUCC 24HR ER 25 MG TAB.ER.24H. PO SCH (12:49)
[2021-03-09] MEDS: FLUTICASONE 50MCG/NASAL SPRAY 16GM BOTTLE. NS SCH (12:51)
[2021-03-09 15:00] VITALS: BP 103/64
--- NOTE | 2021-03-09 16:15 | NUR ---
PATIENT RETURNS FROM DIALYSIS, ALERT AND VERBALLY RESPONSIVE BUT WITH INTERMITTENT NOSE BLEEDS, ELIQUIS HELD PER THIS FOREST PATHOLOGY TEACHER, COLD COMPRESS AND EXTRA KLEENEX GIVEN TO PATIENT PER HIS REQUEST. DUE TO NOSEBLEEDS THIS FOREST PATHOLOGY TEACHER WILL NOT ATTEMPT TO OBTAIN COVID SWAB (PCR), WILL INFORM ON COMING NURSE.
[2021-03-09 19:00] VITALS: BP 101/53
[2021-03-09] MEDS: EPOETIN ALFA-EPBX for ESRD 20,000 UNIT/ML VIAL. SQ SCH (20:30)
[2021-03-09] MEDS: ATORVASTATIN CALCIUM 20 MG TABLET PO SCH (20:30)
[2021-03-09] MEDS: ZINC SULFATE 220 MG CAPSULE. PO SCH (20:31)
--- NOTE | 2021-03-09 22:00 | NUR ---
Pt. continues to have nosebleeds. Refusing covid swab at this time.
[2021-03-09 22:51] VITALS: BP 102/52
[2021-03-10 02:59] VITALS: BP 98/57
[2021-03-10 07:00] VITALS: BP 100/54
[2021-03-10] MEDS: LACTOBACILLUS RHAMNOSUS GG 1 CAPSULE. PO SCH ×2 (08:48→21:31)
[2021-03-10] MEDS: FLUTICASONE 50MCG/NASAL SPRAY 16GM BOTTLE. NS SCH (08:48)
[2021-03-10] MEDS: DOCUSATE SODIUM 100 MG CAPSULE. PO SCH ×2 (08:48→21:31)
[2021-03-10] MEDS: TORSEMIDE 20 MG TABLET. PO SCH (08:48)
[2021-03-10] MEDS: FOLIC/VIT B COMP W-C (RENAL) TABLET. PO SCH (08:48)
[2021-03-10] MEDS: METOPROLOL SUCC 24HR ER 25 MG TAB.ER.24H. PO SCH (08:48)
[2021-03-10] MEDS: AMIODARONE HCL 200 MG TABLET. PO SCH ×2 (08:48→21:31)
[2021-03-10 11:00] VITALS: BP 92/52
--- NOTE | 2021-03-10 11:28 | PDOC ---
Renal-Progress Notes Subjective Notes Notes NO NEW COMPLAINTS History of Present Illness Hx of present illness STABLE Vitals Vitals Vital Signs Date Time Temp Pulse Resp B/P (MAP) Pulse Ox O2 Delivery O2 Flow Rate FiO2 03/10/21 11:00 97.6 63 18 92/52 (65) 100 Room Air 97.6 Weight Weight [ ] I.O. Intake and Output Intake and Output 03/10/21 07:00 Intake Total 200 ml Output Total 700 ml Balance -500 ml Intake Oral 200 ml Output Urine Total 700 ml Review of Systems Constitutional: yes: alert, other (SLEEPY) Ears/Nose/Throat: Yes: no symptom reported Eyes: Yes: no symptom reported Pulmonary: Yes no symptom reported Cardiovascular: Yes no symptom reported Gastrointestional: Yes: no symptom reported Genitourinary: Yes: no symptom reported Musculoskeletal: Yes: no symptom reported Psychiatric/Neurological: Yes: no symptom reported Endocrine: Yes: no symptom reported Physical Exam General Appearance: no apparent distress Skin: warm Respiratory: bilateral CTA Heart: S1S2 Abdomen: soft, bowel sounds present Genitourinary: bladder flat Extremities: pulses present Neurology: alert, oriented, follow commands Assessment Assessment IMP [id number] SEVERE CM WITH EF OF 15% PROB HCAP HX HTN S/P RIGHT LE NECROTIZING FASCIITIS S/P SKIN GRAFT MILD HYPOKALEMIA - CORRECTED PYURIA ANEMIA PLAN CONT EPO HD TOMORROW WAITING FOR PLACEMENT OFF ANTIBIOTICS WOUND CARE WILL CONT TO MONITOR FOR ANDREW RECOVERY WILL FOLLOW JIMMY ROSA MD Mar 10, 2021 11:28
[2021-03-10 11:43] LABS: HEMATOCRIT 26.5 % (39.0-53.0); HEMOGLOBIN 8.4 g/dL (13.0-17.5); RED BLOOD COUNT 3.06 x10^6/uL (4.30-5.70); RED CELL DISTRIBUTION WIDTH 19.8 % (11.5-14.5); WHITE BLOOD COUNT 9.1 x10^3/uL (4.0-11.0)
--- NOTE | 2021-03-10 12:06 | PDOC ---
DANIELE HARTMANN DIRECTOR OF MARKET INTELLIGENCE 03/10/21 1206: CARDIO Progress Notes Date and Time Date of Service 03/10/2021 Time of Evaluation 1140 Subjective Subjective: No Chest Pain, No shortness of breath, No Palpitations, Other (still having intermittent nose bleeds) Vitals Vitals Vital Signs Date Time Temp Pulse Resp B/P (MAP) Pulse Ox O2 Delivery O2 Flow Rate FiO2 03/10/21 11:00 97.6 63 18 92/52 (65) 100 Room Air 97.6 Weight Weight [ ] Input and Output Intake and Output Intake and Output 03/10/21 07:00 Intake Total 200 ml Output Total 700 ml Balance -500 ml Intake Oral 200 ml Output Urine Total 700 ml Laboratory Labs Laboratory Tests Test 03/10/21 11:25 White Blood Count 9.1 x10^3/uL (4.0-11.0) Red Blood Count 3.06 x10^6/uL (4.30-5.70) Hemoglobin 8.4 g/dL (13.0-17.5) Hematocrit 26.5 % (39.0-53.0) Mean Corpuscular Volume 87 fL (79-100) Mean Corpuscular Hemoglobin 28 pg (25-35) Mean Corpuscular Hemoglobin Concent 32 g/dL (31-37) Red Cell Distribution Width 19.8 % (11.5-14.5) Platelet Count 155 x10^3/uL (140-400) Review of Systems Constitutional: yes: alert, other (SLEEPY) Ears/Nose/Throat: Yes: no symptom reported Eyes: Yes: no symptom reported Pulmonary: Yes no symptom reported Cardiovascular: Yes no symptom reported Gastrointestional: Yes: no symptom reported Genitourinary: Yes: no symptom reported Musculoskeletal: Yes: no symptom reported Psychiatric/Neurological: Yes: no symptom reported Endocrine: Yes: no symptom reported Physical Exam HEENT: Neck Supple W Full Motion Chest: Symmetric LUNGS: Clear to Auscultation Heart: irregularly irregular (AFIB, rate controlled ) Abdomen: Soft N/T Neurology: alert, oriented, follow commands Assessment Assessment 1. Persistent AFIB with intermittent RVR; rate now controlled 2. Ischemic cardiomyopathy with an EF of 20 to 25% compensated 3. CAD; past PCI clinically stable 4. Chronic systolic CHF; clinically compensated 5. End-stage renal disease on HD 6. History of right leg necrotizing fasciitis currently being treated with wound care and plastic surgery 7. Hypertension; controlled 8. Dyslipidemia 9. Failure to thrive 10. Epistaxis: still has intermittent today Recommendations Hold Eliquis and antiplatelets for now given persistent epistaxis. If epistaxis remains then ASA Secondary prevention Continue metoprolol for rate control. consider discontinuing amiodarone given persistent AFIB and failed ablation and CVN in the past. Will defer to primary keypuncher, Dr. Pope Fluid off loading per HD Consider for LAAO and AICD implantation, on an outpatient basis, for primary prevention of SCD. Supportive care Justicifation of Admission Dx: Justifications for Admission: Justification of Admission Dx: N/A ADAMARIS VALLEJO MD 03/11/21 0649: CARDIO Progress Notes Plan Plan Late entry for 03/10/2021 Patient seen and examined. Agree with above nurse practitioner note with the following comments I discussed his case with his primary tax assistant. We will plan on decreasing his Eliquis to 2.5 mg twice daily. If he has any recurrent epistaxis then we can consider outpatient left atrial appendage occlusion device. Supportive care. DANIELE HARTMANN APRN Mar 10, 2021 12:06 ADAMARIS VALLEJO MD Mar 11, 2021 06:49
--- NOTE | 2021-03-10 13:52 | NUR ---
SW following. Discussed with RN, pt refused repeat COVID swab yesterday. RN finally able to get it today. Legends checking on insurance auth. SW will continue to follow.
[2021-03-10 15:00] VITALS: BP 102/62
--- NOTE | 2021-03-10 17:40 | PN ---
DATE: 03/10/2021 SUBJECTIVE: The patient is resting, slightly propped up, sleeping comfortably. He apparently has multiple episodes of nosebleed overnight despite the fact that we stopped his apixaban. Apparently, the medical social worker wanted him to be swabbed again, although he was negative on the of this month for coronavirus. PHYSICAL EXAMINATION: GENERAL: When I examined him, he was pale, but no jaundice, cyanosis or thyromegaly. No jugular venous distention. No lower limb edema. VITAL SIGNS: His heart rate was 70, blood pressure 100/54, temperature was 98.6, respiratory rate was 18 and oxygen saturation was 97% on room air. The rest of clinical exam stable. LABORATORY DATA: His lab work as of yesterday showed a white cell count 9200, hemoglobin 8.6, hematocrit 27, MCV 86 and platelet count of 136,000. His chemistry is variable, as he is hemodialysis dependent. ASSESSMENT: 1. Acute kidney injury requiring hemodialysis scheduled on Tuesday, Tuesday, Tuesday. His urine output is improving; however, his serum creatinine continued to rise between dialysis days. 2. History of necrotizing fasciitis with IV antibiotic, split thickness skin graft to the right leg from his anterior aspect of the right thigh. 3. The patient has multiple other medical problems including: A. Hypertension. B. Coronary artery disease status post percutaneous coronary angioplasty and stent deployment. C. Atrial fibrillation for which he underwent ablation, currently his heart rate is well controlled on amiodarone, metoprolol and digoxin. He was started on apixaban and unfortunately, he has multiple episodes of epistaxis. PLAN: To discontinue apixaban. Continue with hemodialysis. Continue with physical and occupational therapy. Continue with wound care. I will check his CBC this morning to make sure that he has not lost and/or require transfusion. He will be discharged to a group home facility once insurance approves. ADOLFO/GALDINO DR: Chadd TID: [id number]
[2021-03-10 19:00] VITALS: BP 98/56
[2021-03-10] MEDS: ATORVASTATIN CALCIUM 20 MG TABLET PO SCH (21:31)
[2021-03-10] MEDS: ZINC SULFATE 220 MG CAPSULE. PO SCH (21:32)
[2021-03-10] MEDS: ACETAMINOPHEN 325 MG TABLET. PO PRN (21:39)
[2021-03-10 23:00] VITALS: BP 99/59
[2021-03-11 02:53] VITALS: BP 113/53
[2021-03-11 07:00] VITALS: BP 102/54
[2021-03-11] MEDS ORDERED: IV NORMAL SALINE 1000ML BAG 1,000 ML IV PRN ×2 (08:30)
[2021-03-11] MEDS ORDERED: DIALYSIS PATIENT. MC PRN (08:30)
[2021-03-11] MEDS: FLUTICASONE 50MCG/NASAL SPRAY 16GM BOTTLE. NS SCH (09:00)
[2021-03-11] MEDS ORDERED: APIX2.5T PO (10:32)
--- NOTE | 2021-03-11 11:03 | PDOC ---
Renal-Progress Notes Subjective Notes Notes NO COMPLAINTS, FEELING WELL History of Present Illness Hx of present illness STABLE Vitals Vitals Vital Signs Date Time Temp Pulse Resp B/P (MAP) Pulse Ox O2 Delivery O2 Flow Rate FiO2 03/11/21 07:00 97.4 71 18 102/54 (70) 98 Room Air 97.4 Weight Weight [ ] I.O. Intake and Output Intake and Output 03/11/21 07:00 Intake Total 850 ml Output Total 380 ml Balance 470 ml Intake Oral 850 ml Output Urine Total 380 ml Labs Labs Laboratory Tests Test 03/10/21 11:25 White Blood Count 9.1 x10^3/uL (4.0-11.0) Red Blood Count 3.06 x10^6/uL (4.30-5.70) Hemoglobin 8.4 g/dL (13.0-17.5) Hematocrit 26.5 % (39.0-53.0) Mean Corpuscular Volume 87 fL (79-100) Mean Corpuscular Hemoglobin 28 pg (25-35) Mean Corpuscular Hemoglobin Concent 32 g/dL (31-37) Red Cell Distribution Width 19.8 % (11.5-14.5) Platelet Count 155 x10^3/uL (140-400) Review of Systems Constitutional: yes: alert, other (SLEEPY) Ears/Nose/Throat: Yes: no symptom reported Eyes: Yes: no symptom reported Pulmonary: Yes no symptom reported Cardiovascular: Yes no symptom reported Gastrointestional: Yes: no symptom reported Genitourinary: Yes: no symptom reported Musculoskeletal: Yes: no symptom reported Psychiatric/Neurological: Yes: no symptom reported Endocrine: Yes: no symptom reported Physical Exam General Appearance: no apparent distress Skin: warm Respiratory: bilateral CTA Heart: S1S2 Abdomen: soft, bowel sounds present Genitourinary: bladder flat Extremities: pulses present Neurology: alert, oriented, follow commands Assessment Assessment IMP [id number] SEVERE CM WITH EF OF 15% PROB HCAP HX HTN S/P RIGHT LE NECROTIZING FASCIITIS S/P SKIN GRAFT MILD HYPOKALEMIA - CORRECTED PYURIA ANEMIA PLAN CONT EPO HD TODAY UF TO TW WAITING FOR PLACEMENT OFF ANTIBIOTICS WOUND CARE JIMMY ROSA MD Mar 11, 2021 11:03
--- NOTE | 2021-03-11 12:25 | PDOC ---
GEORGE PADILLA TEMPLATE REPRODUCTION TECHNICIAN 03/11/21 1225: CARDIO Progress Notes Date and Time Date of Service 03/11/21 Time of Evaluation 1220 Subjective Subjective: No Chest Pain, No shortness of breath, No Palpitations, Other (c/o HERNANDEZ) Vitals Vitals Vital Signs Date Time Temp Pulse Resp B/P (MAP) Pulse Ox O2 Delivery O2 Flow Rate FiO2 03/11/21 07:00 97.4 71 18 102/54 (70) 98 Room Air 97.4 Weight Weight [ ] Input and Output Intake and Output Intake and Output 03/11/21 07:00 Intake Total 850 ml Output Total 380 ml Balance 470 ml Intake Oral 850 ml Output Urine Total 380 ml Review of Systems Constitutional: yes: alert, other (SLEEPY) Ears/Nose/Throat: Yes: no symptom reported Eyes: Yes: no symptom reported Pulmonary: Yes no symptom reported Cardiovascular: Yes no symptom reported Gastrointestional: Yes: no symptom reported Genitourinary: Yes: no symptom reported Musculoskeletal: Yes: no symptom reported Psychiatric/Neurological: Yes: no symptom reported Endocrine: Yes: no symptom reported Physical Exam HEENT: Neck Supple W Full Motion Chest: Symmetric LUNGS: Clear to Auscultation Heart: irregularly irregular (AFIB, rate controlled ) Abdomen: Soft N/T Extremities: No Edema Neurology: alert, oriented, follow commands Assessment Assessment 1. Persistent AFIB with intermittent RVR; rate now controlled 2. Ischemic cardiomyopathy with an EF of 20 to 25% 3. CAD; past PCI 4. Chronic systolic CHF; clinically compensated 5. End-stage renal disease on HD 6. History of right leg necrotizing fasciitis currently being treated with wound care and plastic surgery 7. Hypertension; controlled 8. Dyslipidemia 9. Failure to thrive 10. Epistaxis: none further today Recommendations Secondary prevention Continue metoprolol for rate control. Will defer to primary vanstone machine operator, Dr. Pope Fluid off loading per HD Resume low does Eliquis this afternoon. Consider for LAAO if any recurrent epistaxis. Consider AICD implantation, on an outpatient basis, for primary prevention of SCD. Will defer to primary vanstone machine operator. Supportive care Follow up with [facility] as previously scheduled. Justicifation of Admission Dx: Justifications for Admission: Justification of Admission Dx: N/A ADAMARIS VALLEJO MD 03/12/21 0706: CARDIO Progress Notes Plan Plan Late entry for 03/11/2021. Patient seen and examined. Agree with above nurse practitioner note. We will plan on initiation of low-dose Eliquis at 2.5 mg twice daily and monitor for any epistaxis. Supportive care. Discussed with the patient. GEORGE PADILLA APRN Mar 11, 2021 12:25 ADAMARIS VALLEJO MD Mar 12, 2021 07:06
--- NOTE | 2021-03-11 12:37 | NUR ---
SW following. Discussed with RN, discharge orders faxed to [facility]. Transportation arranged by [facility] for 1430 via [employer]. RN notified.
[2021-03-11] MEDS: DOCUSATE SODIUM 100 MG CAPSULE. PO SCH ×2 (14:31→21:36)
[2021-03-11] MEDS: TORSEMIDE 20 MG TABLET. PO SCH (14:32)
[2021-03-11] MEDS: METOPROLOL SUCC 24HR ER 25 MG TAB.ER.24H. PO SCH (14:32)
[2021-03-11] MEDS: FOLIC/VIT B COMP W-C (RENAL) TABLET. PO SCH (14:32)
[2021-03-11] MEDS: LACTOBACILLUS RHAMNOSUS GG 1 CAPSULE. PO SCH ×2 (14:32→21:36)
[2021-03-11] MEDS: AMIODARONE HCL 200 MG TABLET. PO SCH ×2 (14:33→21:36)
[2021-03-11 15:00] VITALS: BP 104/58
--- NOTE | 2021-03-11 15:58 | NUR ---
Wound/Ostomy Care Wound Type/Assessment: Patient seen per wound care follow up. See wound assessment. Patient has a history of right lower leg nec fasc with skin graft. Patient had originally injured his leg at home and underwent skin graft, inpatient and rehab stay, etc. Wound cleansed, assessed, and measured. the skin graft is incorporated nicely and patient states wound is healing nicely. He states he has missed his last appt with the sugeon but will reschedule once he returns to rehab. Wound p/m for discharge. Treatment Recommendations/Plan: Recommendations for medi-honey gel to eschar/slough areas then cover with xeroform gauze, then ABDs pads and kerlix. Change on Tuesday and Tuesday. Dressing applied and patient tolerated well. No other wound noted. Education provided: Patient educated on dressing changes and PU prevention. Offloading surface/device: N/A Recommended Referrals/Tests: Patient should follow up with wound care whether its here or he continues care at with surgeon. Discharge Recommendations for dressings: Dressing change instructions left in room. Patient discharging to rehab today. Call light in reach. Wound care will follow up on 03/18/21.
[2021-03-11 19:00] VITALS: BP 98/55
[2021-03-11] MEDS: APIXABAN 2.5 MG TABLET. PO SCH (21:35)
[2021-03-11] MEDS: ZINC SULFATE 220 MG CAPSULE. PO SCH (21:35)
[2021-03-11] MEDS: ATORVASTATIN CALCIUM 20 MG TABLET PO SCH (21:36)
[2021-03-11] MEDS: EPOETIN ALFA-EPBX for ESRD 20,000 UNIT/ML VIAL. SQ SCH (21:41)
[2021-03-11 23:00] VITALS: BP 124/61
[2021-03-12 03:00] VITALS: BP 102/62
[2021-03-12] MEDS: FLUTICASONE 50MCG/NASAL SPRAY 16GM BOTTLE. NS SCH (09:00)
[2021-03-12] MEDS: LACTOBACILLUS RHAMNOSUS GG 1 CAPSULE. PO SCH (09:18)
[2021-03-12] MEDS: FOLIC/VIT B COMP W-C (RENAL) TABLET. PO SCH (09:18)
[2021-03-12] MEDS: DOCUSATE SODIUM 100 MG CAPSULE. PO SCH (09:18)
[2021-03-12] MEDS: APIXABAN 2.5 MG TABLET. PO SCH (09:19)
[2021-03-12] MEDS: AMIODARONE HCL 200 MG TABLET. PO SCH (09:19)
[2021-03-12] MEDS: METOPROLOL SUCC 24HR ER 25 MG TAB.ER.24H. PO SCH (09:19)
[2021-03-12] MEDS: TORSEMIDE 20 MG TABLET. PO SCH (09:19)
--- NOTE | 2021-03-12 10:25 | RAD ---
03/12/2021 Removal of right internal jugular tunneled central venous catheter without port Consent: The procedure was explained in its entirety to the patient or the patients designated repres entative by a member of the treatment team, including a discussion of the risks, benefits and commonl y accepted alternatives to the procedure, as well as the expected consequences of no therapy whatsoev er. Discussion of the risks included, but was not limited to, those that are most frequent and thos e that are rare but possibly severe or life-threatening, as well as the possibility of unforeseen com plications. Discussion: The right neck and chest were prepped and draped using sterile barrier technique. The rig ht internal jugular tunnel catheter was evaluated under fluoroscopy and found to be in expected posit ion. The catheter was removed traction. Manual pressure was held. Repeat fluoroscopy confirms stable position of the right internal jugular dialysis catheter. Sterile dressings were applied. No immediat e complications were identified. Total fluoroscopy time: 0.2 minutes Dose area product: 1 Johnson centimeter squared IMPRESSION: Removal of right internal jugular tunneled central line without port Electronically signed by: Adalberto Hahn MD (03/12/2021 10:23 AM) [id number]
[2021-03-12 11:00] VITALS: BP 97/55
--- NOTE | 2021-03-12 11:48 | PDOC ---
DANIELE HARTMANN FIELD TECHNICAL SPECIALIST 03/12/21 1148: CARDIO Progress Notes Date and Time Date of Service 03/12/2021 Time of Evaluation 1130 Subjective Subjective: No Chest Pain, No shortness of breath, No Palpitations Vitals Vitals Vital Signs Date Time Temp Pulse Resp B/P (MAP) Pulse Ox O2 Delivery O2 Flow Rate FiO2 03/12/21 11:00 98.3 70 20 97/55 (69) 95 Room Air 98.3 Weight Weight [ ] Input and Output Intake and Output Intake and Output 03/12/21 07:00 Intake Total 720 ml Output Total 900 ml Balance -180 ml Intake Oral 720 ml Output Urine Total 900 ml # Bowel Movements 1 Review of Systems Constitutional: yes: alert, other (SLEEPY) Ears/Nose/Throat: Yes: no symptom reported Eyes: Yes: no symptom reported Pulmonary: Yes no symptom reported Cardiovascular: Yes no symptom reported Gastrointestional: Yes: no symptom reported Genitourinary: Yes: no symptom reported Musculoskeletal: Yes: no symptom reported Psychiatric/Neurological: Yes: no symptom reported Endocrine: Yes: no symptom reported Physical Exam HEENT: Neck Supple W Full Motion Chest: Symmetric LUNGS: Clear to Auscultation Heart: irregularly irregular (AFIB, rate controlled no tele) Abdomen: Soft N/T Extremities: No Edema Neurology: alert, oriented, follow commands Assessment Assessment 1. Persistent AFIB with intermittent RVR; rate now controlled 2. Ischemic cardiomyopathy with an EF of 20 to 25% 3. CAD; past PCI clinically stable 4. Chronic systolic CHF; clinically compensated 5. End-stage renal disease on HD 6. History of right leg necrotizing fasciitis currently being treated with wound care and plastic surgery 7. Hypertension; controlled 8. Dyslipidemia 9. Failure to thrive 10. Epistaxis: none further today Recommendations Secondary prevention Continue metoprolol for rate control. Will defer to primary federal judicial law clerk, Dr. Pope Fluid off loading per HD Continue low does Andrew this afternoon. Consider for LAAO if any recurrent epistaxis. Consider AICD implantation, on an outpatient basis, for primary prevention of SCD. Will defer to primary federal judicial law clerk. Supportive care. DC today Follow up with [facility] as previously scheduled. Justicifation of Admission Dx: Justifications for Admission: Justification of Admission Dx: N/A ADAMARIS VALLEJO MD 03/12/21 1554: CARDIO Progress Notes Plan Plan Patient seen and examined. Agree with above nurse practitioner note. Supportive care. DANIELE HARTMANN APRN Mar 12, 2021 11:48 ADAMARIS VALLEJO MD Mar 12, 2021 15:54
--- NOTE | 2021-03-12 12:19 | PDOC ---
Renal-Progress Notes Subjective Notes Notes NO NEW COMPLAINTS History of Present Illness Hx of present illness STABLE Vitals Vitals Vital Signs Date Time Temp Pulse Resp B/P (MAP) Pulse Ox O2 Delivery O2 Flow Rate FiO2 03/12/21 11:00 98.3 70 20 97/55 (69) 95 Room Air 98.3 Weight Weight [ ] I.O. Intake and Output Intake and Output 03/12/21 07:00 Intake Total 720 ml Output Total 900 ml Balance -180 ml Intake Oral 720 ml Output Urine Total 900 ml # Bowel Movements 1 Review of Systems Constitutional: yes: alert, other (SLEEPY) Ears/Nose/Throat: Yes: no symptom reported Eyes: Yes: no symptom reported Pulmonary: Yes no symptom reported Cardiovascular: Yes no symptom reported Gastrointestional: Yes: no symptom reported Genitourinary: Yes: no symptom reported Musculoskeletal: Yes: no symptom reported Psychiatric/Neurological: Yes: no symptom reported Endocrine: Yes: no symptom reported Physical Exam General Appearance: no apparent distress Skin: warm Respiratory: bilateral CTA Heart: S1S2 Abdomen: soft, bowel sounds present Genitourinary: bladder flat Extremities: pulses present Neurology: alert, oriented, follow commands Assessment Assessment IMP [id number] SEVERE CM WITH EF OF 20-25% AFIB RVR PROB HCAP HX HTN S/P RIGHT LE NECROTIZING FASCIITIS S/P SKIN GRAFT MILD HYPOKALEMIA - CORRECTED PYURIA ANEMIA PLAN CONT EPO HD TOMORROW MAY NEED AICD CARDIOLOGY EVAL WAITING FOR PLACEMENT OFF ANTIBIOTICS WOUND CARE JIMMY ROSA MD Mar 12, 2021 12:19
--- NOTE | 2021-03-12 12:21 | NUR ---
NITHYA following. Discussed with RN, pt unable to discharge yesterday due to needing his PICC line to be removed by IR. PICC removed this morning. Transportation arranged by [facility] for 1600. NITHYA notified Dr. Hicks that [facility] is requesting today's date to be put on the discharge orders. RN notified. NITHYA will continue to follow.
[2021-03-12 15:00] VITALS: BP 101/55
--- NOTE | 2021-03-12 20:09 | NUR ---
REPORT CALLED TO ILEANA AT [facility], QUESTIONS AND CONCERNS ANSWERED.
== END 2021-03-12 19:45 | DRG 682 ==
LOC: 6 SOUTH 14:23 → 5 SOUTH 03-08 18:23
PROVIDERS: ADMIT Internal Medicine; ATTEND Internal Medicine
PROC: 5A1D70Z Performance of Urinary Filtration, Intermittent, Less than 6 Hours Per Day (ICD-10-PCS; 2021-03-02)
PROC: 5A1D70Z Performance of Urinary Filtration, Intermittent, Less than 6 Hours Per Day (ICD-10-PCS; 2021-03-04)
PROC: 5A1D70Z Performance of Urinary Filtration, Intermittent, Less than 6 Hours Per Day (ICD-10-PCS; 2021-03-06)
PROC: 5A1D70Z Performance of Urinary Filtration, Intermittent, Less than 6 Hours Per Day (ICD-10-PCS; principal; 2021-03-09)
PROC: 5A1D70Z Performance of Urinary Filtration, Intermittent, Less than 6 Hours Per Day (ICD-10-PCS; 2021-03-11)
PROC: 0JPT3XZ Removal of Tunneled Vascular Access Device from Trunk Subcutaneous Tissue and Fascia, Percutaneous Approach (ICD-10-PCS; 2021-03-12)
PROC: 05PY33Z Removal of Infusion Device from Upper Vein, Percutaneous Approach (ICD-10-PCS; 2021-03-12)
DX: N17.0 Acute kidney failure with tubular necrosis (principal); J18.9 Pneumonia, unspecified organism; I13.2 Hypertensive heart and chronic kidney disease with heart failure and with stage 5 chronic kidney disease, or end stage renal disease; I48.19 Other persistent atrial fibrillation; I50.22 Chronic systolic (congestive) heart failure; N18.6 End stage renal disease; D64.9 Anemia, unspecified; E78.5 Hyperlipidemia, unspecified; E87.6 Hypokalemia; I25.10 Atherosclerotic heart disease of native coronary artery without angina pectoris; I25.5 Ischemic cardiomyopathy; R04.0 Epistaxis; R62.7 Adult failure to thrive; Y95 Nosocomial condition; Z79.01 Long term (current) use of anticoagulants; Z82.49 Family history of ischemic heart disease and other diseases of the circulatory system; Z87.39 Personal history of other diseases of the musculoskeletal system and connective tissue; Z95.5 Presence of coronary angioplasty implant and graft; Z99.2 Dependence on renal dialysis
CPT/HCPCS: 36415; 36589; 76705; 77001; 80048; 80053; 85025; 85027; 86706; 87340; 87426; J0692; U0003; U0005; 97110-GP; 97116-GP; 97535-GO; G0378